=== PATIENT | female | born 1960 | race Caucasian/White ===

== ENCOUNTER 2016-04-28 05:31 | Inpatient (IN) | payer BC, SELFPAY ==
--- NOTE | ~2016-04-28 | CN ---
Consultation Report [facility] [address] [place]. [address] NAME: BRYAN WEBSTER : 64 STATUS : ADM IN [facility]#: [id number] AGE: 55 ADM/REG DATE : 04/28/16 MR#: [id number] REPORT SERV DATE: 05/02/16 DICTATED BY: JESS HEREDIA DATE: 05/02/16 REPORT STATUS : Draft TRANSCRIBED BY: MODL DATE: 05/02/16 CONSULT NOTE DATE OF CONSULTATION: 05/02/2016 REASON FOR CONSULTATION: Bilateral infiltrates and hypoxia. CHIEF COMPLAINT: None per the patient, the patient states she is doing fine. HISTORY OF PRESENT ILLNESS: Mrs. Webster is a 55-year-old female with a past medical history of hypertriglyceridemia, who has had uncontrolled triglycerides now for several months. According to the patient, who has a new diagnosis of diabetes and presented on the 04/28/2016 with intractable nausea and vomiting along with abdominal pain and was found to have pancreatitis. Due to the current treatment plan, the patient's pancreatitis has significantly improved, she has just mild tenderness upon abdominal palpation. However, according to the hospice, it has been noted that the patient has been having hypoxia now for several days. She has been on high flow oxygen on 10 L, this has now decreased to around 8 L. Upon speaking to the patient, the patient denies having any type of pneumonia symptoms even though the CT scan is consistent with an infiltrate, which is consistent with pneumonia. The patient states that her shortness of breath is not currently evident. Otherwise, the patient has no further complaints from a pulmonary standpoint. PAST MEDICAL HISTORY: Diabetes, hyper lipidemia, hypertriglyceridemia, renal insufficiency from , history of liver cysts, reflux, obesity. HOME MEDICATIONS: Medications reviewed. The patient is on Crestor, Glucophage, TriCor, and Cortef, among other things. ALLERGIES: NO KNOWN DRUG ALLERGIES. SOCIAL HISTORY: The patient is currently by herself, no alcohol or illicit drug use or tobacco use. FAMILY HISTORY: The patient states other family members with cancer, but nothing like this. REVIEW OF SYSTEMS: All pertinent review of systems reviewed and is otherwise negative. PHYSICAL EXAMINATION: VITAL SIGNS: Afebrile, heart rate around 100, respiratory rate around 14 to 16, oxygen saturation is round 92 to 94% on 8 L nasal cannula, blood pressure currently in the 110s to 120s systolic. GENERAL: The patient is alert and oriented x3, in no acute distress, no complaints. HEENT: No JVD. Consultation Report [address] [place]. [address] NAME: BRYAN WEBSTER : 64 STATUS : ADM IN [facility]#: [id number] AGE: 55 ADM/REG DATE : 04/28/16 MR#: [id number] REPORT SERV DATE: 05/02/16 DICTATED BY: JESS HEREDIA DATE: 05/02/16 REPORT STATUS : Draft TRANSCRIBED BY: MODLucia DATE: 05/02/16 NECK: Supple. PULMONARY: Crackles heard in the posterior lung engel and are somewhat distant, but no wheezing. CARDIAC: Possibly tachycardic, but no murmurs. ABDOMEN: Positive bowel sounds, yigc-ti-wgeekcob tenderness upon deep palpation in the epigastric area. EXTREMITIES: No lower extremity edema, peripheral pulses noted, extremity is warm to touch. LABORATORY EXAMINATION: No leukocytosis, moderate anemia, hypokalemia, good kidney function, hypophosphatemia. Triglycerides were 3971. LDL was not able to be calculated, cholesterol 357, and LDH is improving, lipase is improving. CT scan of the chest done on 05/01/2016, the patient has bilateral non-dependent dense infiltrates bilaterally, especially in the right upper lobe, no pulmonary emboli. ASSESSMENT AND PLAN: Mrs. Webster is a 55-year-old female with a past medical history noted above, who presents to the Pulmonary Clinic in acute hypoxic respiratory failure, acute respiratory distress syndrome, pulmonary edema. 1. Acute hypoxic respiratory failure. Most likely this is secondary to the patient's pancreatitis, likely the patient does not seem to have any sepsis syndrome. She is on antibiotics. We will check a procalcitonin, does not have any signs of pneumonia. Chest x-ray seemed pretty normal prior to the CT scan. As she has improvement in her hypoxia this moment in time, we will attempt diuresis. She does have electrolyte abnormalities for which the primary team aware up. We will continue to monitor and steroids will probably not helped with the patient at this moment in time, we are speaking about the glucocorticosteroid, not the Solu-Cortef that she had for her adrenal insufficiency. We will continue to follow closely and if this is secondary to the patient's pancreatitis, these shall improve. We will check her LDH and lipase in the morning. 2. Hypertriglyceridemia and hypocholesterolemia. Unclear whether this patient needs further therapy than just statin therapy, I wonder if she is a candidate of PASK9 inhibitors. This will need to be addressed in the outpatient setting. The patient does have an operator prefinish of note .. Thank you very much for this consultation and seeking our opinion, we will continue to follow closely with this very nice patient. FLORIQ/PAT Jess Heredia MD / [id number] Consultation Report [address] [place]. [address] NAME: BRYAN WEBSTER : 64 STATUS : ADM IN [facility]#: [id number] AGE: 55 ADM/REG DATE : 04/28/16 MR#: [id number] REPORT SERV DATE: 05/02/16 DICTATED BY: JESS HEREDIA DATE: 05/02/16 REPORT STATUS : Draft TRANSCRIBED BY: PAT DATE: 05/02/16 CC: Doug Lea N.P.
--- NOTE | ~2016-04-28 | CN ---
Consultation Report [facility] [address] [place]. [address] NAME: BRYAN SANCHEZ : 64 STATUS : ADM IN [facility]#: [id number] AGE: 55 ADM/REG DATE : 04/28/16 MR#: [id number] REPORT SERV DATE: 05/06/16 DICTATED BY: PATY CARLSON JR. DATE: 05/06/16 REPORT STATUS : Draft TRANSCRIBED BY: PAT DATE: 05/06/16 CONSULTATION DATE OF CONSULTATION: 05/06/2016 This is a consultation requested by Dr. Ryan for pancreatitis. HISTORY OF PRESENT ILLNESS: This is a 55-year-old female who has been hospitalized with acute pancreatitis. She was admitted on 04/28/2016 with complaints of intractable abdominal pain, nausea, and vomiting for one-day period of time. She has a history of diabetes and hyperlipidemia. She was admitted and thought to have acute pancreatitis with a CT scan which showed acute pancreatitis and elevated lipase. She was treated and actually has had some clinical improvement in her course; however, followup CT scans done yesterday demonstrated worsening of the pancreatitis with extensive peripancreatic edema, inflammation, and development of acute peripancreatic fluid collections concerning for incipient pseudocyst. She also has pulmonary changes which were somewhat concerning for ARDS, but this part has actually improved as well. She is tolerating minimal amounts of clear liquids. She does have some discomfort but it is improved. PAST MEDICAL HISTORY: Remarkable for history of diabetes, hyperlipidemia, hypertriglyceridemia, adrenal insufficiency, and actually has had adrenalectomy for the adrenal enlargement and is on adrenal hormone replacement therapy. SURGICAL HISTORY: Remarkable for she has had previous cholecystectomy, hysterectomy, C- section, and the surgeries above. SOCIAL HISTORY: No alcohol or tobacco. MEDICATIONS: Reviewed. FAMILY HISTORY: Noncontributory. REVIEW OF SYSTEMS: Otherwise noncontributory. PHYSICAL EXAMINATION: GENERAL: The exam shows an obese middle-aged female, who is in no acute distress, sitting quietly in a chair. HEENT: The head and neck exam shows the pupils equal and reactive. There are no icteric changes. Mucous membranes are not dry. There is some facial hair. LUNGS: Clear. CARDIOVASCULAR: Exam shows a normal S1 and S2 without murmur. ABDOMEN: The abdomen somewhat distended but soft. There is very mild tenderness. There is no peritonitis. There is no mass or thyromegaly. EXTREMITIES: Show no acute edema or cyanosis. Consultation Report [place] [id number] [place]. [address] NAME: BRYAN SANCHEZ : 64 STATUS : ADM IN PAT#: [id number] AGE: 55 ADM/REG DATE : 04/28/16 MR#: [id number] REPORT SERV DATE: 05/06/16 DICTATED BY: PATY CARLSON JR. DATE: 05/06/16 REPORT STATUS : Draft TRANSCRIBED BY: PAT DATE: 05/06/16 NEUROLOGIC: Exam shows that she is alert and oriented. She has no focal findings. DATA: CT images are reviewed in detail. IMPRESSION: Acute pancreatitis with complications of peripancreatic fluid collection, incipient pseudocyst. There is no evidence of any infection or necrosis currently. She has had complications of pulmonary ARDS, but these appear to be improving symptomatically. RECOMMENDATION: Would be for continued conservative treatment of pancreatitis with IV fluids and GI rest. We will check the level and we will need to monitor followup CT scans for the development of mature pseudocyst or any other complicating features. SHAINA/PAT Paty Carlson Jr., M.D. / [id number] CC: ERIC SANTANA
--- NOTE | ~2016-04-28 | IDS ---
Interim Discharge Summary [facility] [address] [place]. [address] NAME: BRYAN SANCHEZ : 64 STATUS : ADM IN [facility]#: [id number] AGE: 55 ADM/REG DATE : 04/28/16 MR#: [id number] REPORT SERV DATE: 05/05/16 DICTATED BY: NITHYA ESCALERA DATE: 05/05/16 REPORT STATUS : Draft TRANSCRIBED BY: MODL DATE: 05/05/16 ADMISSION DATE: 04/28/2016 DISCHARGE DATE: CONSULTING PHYSICIAN: Dr. Barriga for GI. INTERIM DIAGNOSES: 1. Acute pancreatitis with pseudocyst. 2. Hypertriglyceridemia. 3. Acute hypoxic respiratory failure. 4. Acute respiratory distress syndrome plus/minus bilateral pneumonia. 5. Uncontrolled diabetes. 6. Adrenal insufficiency. 7. Hyponatremia. 8. Hypothyroidism. 9. Obesity. 10.Gastroesophageal reflux disease. DIAGNOSTIC EXAMS: CAT scan of the abdomen and pelvis showing CT findings consistent with acute pancreatitis pattern, nonspecific hepatomegaly, and hepatic steatosis pattern, status post cholecystectomy, and hysterectomy. Chest x-ray, no acute process no prior exam. CTA of the chest; dense infiltrates and areas of consolidation within the lungs bilaterally, especially in the upper lobes, likely pneumonia. Small mediastinal and bilateral hilar lymph nodes, but no suspiciously enlarged lymph nodes are identified. No evidence of pulmonary emboli. No evidence of thoracic aortic dissection or aneurysm. Repeat CAT scan of the chest shows diffuse bilateral pulmonary infiltrates with areas of consolidation, diffuse ground-glass infiltrates. The apices remains to be more involved compared to previous study. There is increasing infiltrate involving the lower lobes, adenopathy of the mediastinum similar to previous exams. The nodes are not significantly enlarged. CT of the abdomen and pelvis showing inflammatory process within the abdomen, is extremely worse. Compared to 04/28/2016, there is increasing edema, enlarging the pancreas and increase in the edema around the pancreas that also extends into the adjustment issues and into the mesentery. There is now a fluid collection measuring approximately 12 x 5.9 cm along the greater curvature of the stomach that was not present on prior study, most likely representing pseudocyst. Hepatomegaly with diffuse fatty infiltration. HOSPITAL COURSE: Please refer to the H and P done by Dr. Valdes, dated on 04/28/2016. Briefly, this is a 55-year-old female who comes in with abdominal pain, nausea, and vomiting. 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 The patient presented to the hospital Interim Discharge Summary [place] [address] [place] [address] NAME: BRYAN SANCHEZ : 64 STATUS : ADM IN [facility]#: [id number] AGE: 55 ADM/REG DATE : 04/28/16 MR#: [id number] REPORT SERV DATE: 05/05/16 DICTATED BY: NITHYA ESCALERA. DATE: 05/05/16 REPORT STATUS : Draft TRANSCRIBED BY: MODLucia DATE: 05/05/16 with a one-day history of intractable nausea, vomiting, and abdominal pain. The patient was then admitted by Dr. Valdes with a diagnosis of pancreatitis. GI consultation with Dr. Barriga was obtained. The patient was treated conservatively, however, later on, she started having some increasing shortness of breath. She then had a CAT scan, which showed significant changes from the previous x-ray, and we are thinking that she has bilateral pneumonia. She came in with a procalcitonin of 0.99, but it went down to 0.67, and she was not having constant fever though she had an episode where it was elevated. The empiric antibiotic was continued with Levaquin and Flagyl, and we got a Pulmonary consult. The patient remains on high-flow oxygen and she said that she was feeling better, however, she does not seem to be improving much. We finally repeated a CAT scan of the chest and abdomen which shows the above findings. The patient will be monitored closely and continue with supportive measures with the consultants. Partner [facility] will be following up the patient starting Friday. SOULEYMANE/PAT Nithya Escalera M.D. / [id number] CC: Doug Lea N.P.
--- NOTE | ~2016-04-28 | DS ---
Discharge Summary [place] [id number] [place]. [address] NAME: BRYAN SANCHEZ : 64 STATUS : DIS IN PAT#: [id number] AGE: 55 ADM/REG DATE : 04/28/16 MR#: [id number] REPORT SERV DATE: 05/14/16 DICTATED BY: DATE: REPORT STATUS : Draft TRANSCRIBED BY: MODL DATE: 05/13/16 ADMISSION DATE: 04/28/2016 DISCHARGE DATE: 05/13/2016 [facility] including Dr. Salma Valdes and Dr. Jair Ryan. CONSULTANTS: Included Pulmonology - Ravin Chatman and also General surgery, Dr. Prieto and GI, Dr. Barriga. DISCHARGE DIAGNOSES: 1. Severe acute pancreatitis with pseudocyst formation. 2. ARDS due to acute pancreatitis. 3. Acute hypoxemic respiratory failure due to ARDS - resolved. 4. Anasarca due to hypoalbuminemia - improved during the admission. 5. Hypertriglyceridemia. 6. Ilc-fjaszgy-jrbbqpubh diabetes mellitus type 2 - hemoglobin A1c of 13.1. 7. History of adrenal insufficiency - history of a prior adrenalectomy. 8. Hypothyroidism. 9. Hyperlipidemia. 10.Situational anxiety. 11.Iatrogenic anemia due to multiple lab draws and prolonged hospitalization. IMAGING AND DIAGNOSTICS: Include multiple CTs of the abdomen and pelvis demonstrating severe acute pancreatitis, nonspecific hepatomegaly and hepatic steatosis. Status post cholecystectomy and hysterectomy. Subsequent CTs of the abdomen and pelvis demonstrated worsening inflammatory process with increasing peripancreatic edema extending into the mesentery, 12- x 6-cm fluid collection along the greater curvature of the stomach likely representing a pseudocyst, hepatomegaly with diffuse fatty infiltration. Subsequent imaging showed enlarging pseudocyst, but no pancreatic ischemia or necrosis. Subsequent CT showed stability of the pseudocyst. The patient also had multiple portable chest x-rays and a CTA of the chest demonstrating diffuse bilateral pulmonary edema. PERTINENT LABORATORIES: Blood Gas: A pH of 7.33, pCO2 of 33, PO2 of 61, and oxygen saturation 91% on 4 L nasal cannula. Procalcitonin values positive during the admission between 0.6 and 1.00. Creatinine values were normal. Total cholesterol 357, HDL 20, LDL could not be calculated due to high triglycerides ranging in value from 3971 to 735 during the admission. Liver enzymes were normal. Lipase ranged from 1916 to 397. TSH and free T4 were normal. Prealbumin 4.8. Hemoglobin A1c 13.1. BNP 190. Ammonia level 74. Lactic acid level negative. White blood cell count from 8.5 to 11.1. Hemoglobin from 9.6 to 11.4. Platelets between 305 and 778. Urinalysis was negative. Four sets of blood cultures were negative. BRIEF HISTORY: For full details, please see the previously dictated history of present Discharge Summary [address] [address] NAME: BRYAN SANCHEZ : 64 STATUS : DIS IN PAT#: [id number] AGE: 55 ADM/REG DATE : 04/28/16 MR#: [id number] REPORT SERV DATE: 05/14/16 DICTATED BY: DATE: REPORT STATUS : Draft TRANSCRIBED BY: MODL DATE: 05/13/[address] Salma Valdes. This is a 55-year-old white female with recently diagnosed diabetes, history of hyperlipidemia and hypertriglyceridemia, who presented to the emergency department with one-day history of intractable nausea, vomiting, epigastric abdominal pain, and dehydration. Her lipase was found to be elevated with CT scan showing acute pancreatitis, and the patient was admitted to the Hospitalist Service for further management. HOSPITAL COURSE: For full details, please also reference interim discharge summary by Dr. Jair Ryan on 05/05/2016. The patient initially was treated conservatively for acute pancreatitis, but during the week of 05/01/2016 was having increasing shortness of breath. She had a CT scan of the lungs showing progressive infiltrates and ARDS. Around that time, she also was doing worse from a GI perspective, with increasing abdominal pain. A repeat CT of the abdomen demonstrated progressive pancreatic inflammation with development of a large pseudocyst, expanding in size from prior imaging. General Surgery and GI were following the patient at that point and recommended total gut rest with TPN for severe protein-calorie malnutrition. This was initiated on 05/08/2016. The patient remained hospitalized with serial CT scans and labs until the CT scan showed improvement on the morning of 05/13/2016. At that point, she was felt appropriate for transition to an oral diet, which she tolerated, and she was requesting to be discharged home on the evening of 05/13/2016, even though in less than 12 hours had a lapse, and she was weaned off TPN and began eating. She was adamant that she would not remain in the hospital any further. Dr. Sue asked her to reconsider, and she refused. Thus, the patient is being discharged to home in the care of her , with explicit instructions to return to the emergency department if she develops any increase in abdominal pain, fever, nausea, vomiting, or other symptoms to suggest progression of known pancreatitis and pancreatic pseudocyst. Her ARDS resolved during the course of this week, and she was able to be weaned off oxygen entirely. She did have an episode of anasarca and severe peripheral edema which responded to albumin and Lasix. Her edema also improved as her nutritional status improved. Blood sugar control was an issue this admission, particularly when patient was on TPN, with blood sugars frequently around the 300 range. She required 50 units of Levemir twice a day as well as sliding scale regular insulin to control her blood sugars less than 200 during the admission. This was discussed with her sew out operator prior to discharge who recommended initiation of 10 units of Lantus subcu at bedtime, and stated that she will follow the patient closely within the next week. The patient was kept on her home medications for adrenal insufficiency, hypothyroidism, and hyperlipidemia. She was briefly treated with p.r.n. Ativan for situational anxiety but does not require this medication for discharge. DISCHARGE DISPOSITION: To home in the care of her with reservations from the medical staff as above. She should stick with a soft low-fat diabetic diet at discharge for the next several weeks. She needs to follow up with Dr. Mahmood of Endocrinology within a week and with Dr. Barriga in 1 month unless she develops abdominal pain; at which point, she Discharge Summary [place] [address] [place]. [address] NAME: BRYAN SANCHEZ : 64 STATUS : DIS IN PAT#: [id number] AGE: 55 ADM/REG DATE : 04/28/16 MR#: [id number] REPORT SERV DATE: 05/14/16 DICTATED BY: DATE: REPORT STATUS : Draft TRANSCRIBED BY: MODL DATE: 05/13/16 needs to return to the emergency department or contact Dr. Barriga's office immediately. DISCHARGE MEDICATIONS: Include 1. Tricor 145 mg p.o. every day at bedtime. 2. Florinef 0.1 mg p.o. q.a.m. 3. Hydrocortisone 10 mg p.o. q.a.m. 4. Hydrocortisone 5 mg p.o. at bedtime. 5. Glucophage 500 mg p.o. twice a day. 6. Levothyroxine 100 mcg p.o. q.a.m. 7. Nexium 20 mg p.o. daily. 8. Crestor 40 mg p.o. at bedtime. 9. Zyrtec 10 mg p.o. daily. 10.Percocet 5/325 mg p.o. q.6 hours p.r.n. pain - 20 tablets dispensed with no refills. 11.Lantus 10 units subcu at bedtime. 12.[place] and syringes for daily insulin injection. Forty minutes was spent in completion of the discharge. JARRETT/PAT Tez Pandya M.D. / [id number] CC: Doug Blanc N.P. Richard Sadowitz, M.D. Jasmine Carson, N.P. Sheela Lohiya, MD
--- NOTE | ~2016-04-28 | HP ---
History And Physical [facility] [address] [place]. [address] NAME: BRYAN SANCHEZ : 64 STATUS : ADM IN [facility]#: [id number] AGE: 55 ADM/REG DATE : 04/28/16 MR#: [id number] REPORT SERV DATE: 04/28/16 DICTATED BY: SALMA VALDES DATE: 04/28/16 REPORT STATUS : Draft TRANSCRIBED BY: MODL DATE: 04/28/16 DATE OF ADMISSION: 04/28/2016 CHIEF COMPLAINT: Intractable abdominal pain, nausea, and vomiting for one day. HISTORY OF PRESENT ILLNESS: This is a very pleasant 55-year-old female. She has a history of diabetes type 2, newly diagnosed; history of hyperlipidemia; history of adrenal insufficiency secondary to adrenal hyperplasia. She has had adrenalectomy performed in the past according to the family. She is on replacement treatment with Florinef and hydrocortisone. She also has a history of hypothyroidism, GERD, obesity; presenting today to [facility] with one-day history of intractable nausea, vomiting, epigastric abdominal pain, significant dehydration, and inability to keep anything down. There was no chest pain or shortness of breath. No PND. No orthopnea. There was no headache. There was no cough or sputum production. No increased urinary frequency or urgency. No diarrhea or constipation. No other complaints. The patient has been evaluated in the emergency room, and the Hospitalist Service has been asked for admission, further evaluation, and treatment. PAST MEDICAL HISTORY: Significant for diabetes type 2; history of hyperlipidemia; adrenal insufficiency, on replacement treatment; history of liver cyst; and GERD. PAST SURGICAL HISTORY: Includes cholecystectomy, hysterectomy, , and adrenalectomy. SOCIAL HISTORY: Denies tobacco, alcohol, or IV drugs. ALLERGIES: THE PATIENT DOES NOT HAVE ANY DRUG ALLERGIES. FAMILY HISTORY: Significant for cancer. MEDICATIONS AT HOME: Include Zyrtec, Nexium, TriCor, Florinef, Cortef, levothyroxine, Glucophage, and Crestor. REVIEW OF SYSTEMS: A 14-point review of systems has been obtained and pertinent positive has been listed into the history of present illness. Otherwise, negative except those underlying above. PHYSICAL EXAMINATION: VITAL SIGNS: Currently, the patient is afebrile. Blood pressure 132/60, heart rate 99, respiratory rate 20, saturating 94% on room air. GENERAL: She is a very pleasant, ill-appearing female, in no acute distress. She is alert and oriented x3. She is nonfocal. She follows all her commands appropriately. HEENT: Shows pupils equal, round, and reactive to light. Extraocular movements intact. No JVD. No lymphadenopathy. No thyromegaly appreciated. CHEST: Evaluation shows bilateral air entry. Clear anteroposterior. Decreased breath sounds bibasilarly. No wheezes, crackles, or rhonchi appreciated. CARDIOVASCULAR: She has regular rate and rhythm. S1 and S2 positive. No S3, no S4. No History And Physical [address] [address] NAME: BRYAN SANCHEZ : [birth year] STATUS : ADM IN [facility]#: [id number] AGE: 55 ADM/REG DATE : 04/28/16 MR#: [id number] REPORT SERV DATE: 04/28/16 DICTATED BY: SALMA VALDES DATE: 04/28/16 REPORT STATUS : Draft TRANSCRIBED BY: PAT DATE: 04/28/16 murmurs, rubs, or gallops appreciated. ABDOMEN: Soft, slightly distended but tender in the epigastric area. No guarding. No rebound. EXTREMITIES: No clubbing, cyanosis, or edema. NEUROLOGIC: She is alert and oriented x3. She is nonfocal. She follows all her commands appropriately. LABORATORY DATA: Labs from today include sodium 138, potassium 3.6, chloride is 102, CO2 of 21, BUN 6, creatinine 0.50, glucose is 269. Her total protein 6.7, albumin 3.3, globulin 3.4, total bilirubin 0.4, alkaline phosphatase 103, ALT 39, AST 45. Lipase 1916. Her white count is 11.1, hemoglobin 11.4, hematocrit 35.5, and platelets are 340. UA currently is pending. CT of the abdomen and pelvis without contrast performed in the emergency room shows an acute pancreatitis, nonspecific hepatomegaly and hepatic steatosis, status post cholecystectomy and hysterectomy. ASSESSMENT AND PLAN: This is a very pleasant 55-year-old female with intractable nausea, vomiting, and abdominal pain with: 1. Acute pancreatitis, questionable etiology, possibly related to hyperlipidemia. Rule out other causes. 2. History of adrenal insufficiency, on replacement treatment. 3. Diabetes type 2, noninsulin-dependent, recently diagnosed. 4. Fatty liver. 5. Hypothyroidism. 6. History of gastroesophageal reflux disease. PLAN: 1. The patient is going to be admitted to Hospitalist Service. We are going to keep her n.p.o. Provide her vigorous IV hydration. We are going to place her on Protonix IV b.i.d. Panculture, supportive care. We are going to order an MRI of the abdomen, GI evaluation. Check a fasting lipid profile as well. Provide supportive care, nausea and pain control. 2. History of adrenal insufficiency. While the patient is n.p.o., we are going to provide IV Solu-Cortef as needed. 3. Hyperlipidemia history. We are going to check a fasting lipid profile. 4. Diabetes type 2, recently diagnosed. While the patient is n.p.o., Accu-Cheks q.6 hours and sliding scale insulin subcutaneously, level 2. 5. Hypothyroidism. We are going to provide Synthroid and check a TSH and a free T4. 6. We are going to provide reasonable pain and nausea control as well as GI and DVT prophylaxis. This has been discussed extensively with the patient and the family. All the questions have been answered in full. Further workup and recommendation pending above. CF/MODL Salma History And Physical [address] [address] NAME: BRYAN SANCHEZ : [birth year] STATUS : ADM IN [facility]#: [id number] AGE: 55 ADM/REG DATE : 04/28/16 MR#: [id number] REPORT SERV DATE: 04/28/16 DICTATED BY: SALMA VALDES DATE: 04/28/16 REPORT STATUS : Draft TRANSCRIBED BY: MODL DATE: 04/28/16 Doug Valdes / [id number] CC: Salma Valdes M.D.
[2016-04-28 06:07] LABS: CO2 (CARBON DIOXIDE) 21 MMOL/L (24-34)
[2016-04-28 06:11] LABS: BASOPHILS 0.2 %; BASOPHILS ABSOLUTE 0.02 10/3/uL (0.0-0.16); EOSINOPHILS 2.4 %; EOSINOPHILS ABSOLUTE 0.27 10/3/uL (0.0-0.53); HEMATOCRIT 35.5 % (36.0-48.0); IMMATURE GRANULOCYTES 0.2 %; IMMATURE GRANULOCYTES ABSOLUTE 0.02 10/3/uL (0.0-0.11); LYMPHOCYTES 8.5 %; LYMPHOCYTES ABSOLUTE 0.94 10/3/uL (0.67-4.30); MEAN CORPUSCULAR VOLUME 86.8 fL (80-100); MEAN PLATELET VOLUME 11.6 fL (9.2-13.0); MONOCYTES 10.2 %; MONOCYTES ABSOLUTE 1.13 10/3/uL (0.21-1.20); NEUTROPHILS 78.5 %; NEUTROPHILS ABSOLUTE 8.68 10/3/uL (2.02-8.40); PLATELET COUNT 340 10/3/uL (150-400); RBC DISTRIBUTION WIDTH 15.1 % (12.0-16.0); RED CELL COUNT 4.09 10/6/uL (4.0-5.6); WHITE BLOOD CELLS 11.1 10/3/uL (4.5-10.5)
[2016-04-28 06:13] LABS: ER CBC TAT 0 Hrs 37 Mins; HEMOGLOBIN 11.4 g/dL (12.0-16.0); MEAN CORPUSCULAR HEMOGLOB 27.8 pg (26.0-34.0)
[2016-04-28 06:14] LABS: MANUAL DIFF NO %
[2016-04-28] MEDS ORDERED: LEVOTHYROXIN100 MCG PO (06:29)
[2016-04-28] MEDS ORDERED: TRICOR145 PO (06:29)
[2016-04-28] MEDS ORDERED: FLORINEF0.1 MG PO (06:29)
[2016-04-28] MEDS ORDERED: ZYRTEC ALLGY10 MG PO (06:30)
[2016-04-28] MEDS ORDERED: NEXIUM20 M1 PO (06:30)
[2016-04-28] MEDS ORDERED: CRESTOR40 MG PO (06:30)
[2016-04-28] MEDS ORDERED: CORTEF5 PO (06:31)
[2016-04-28] MEDS ORDERED: CORTEF20 MG PO (06:31)
[2016-04-28] MEDS ORDERED: GLUCPH PO (06:32)
[2016-04-28 06:38] LABS: PLATELET ESTIMATE ADQ (ADEQUATE); RBC MORPHOLOGY NORM (NORMAL)
[2016-04-28 08:11] LABS: ALKALINE PHOSPHATASE 101 U/L (45-117); BUN (BLOOD UREA NITROGEN) 6 MG/DL (6-23); CALCIUM, SERUM 8.4 MG/DL (8.5-10.4); SGOT(AST) 45 U/L (5-40); SGPT(ALT) 39 U/L (5-65); TOTAL BILIRUBIN 0.4 MG/DL (0-1.2); TOTAL PROTEIN 6.7 G/DL (6.0-8.5)
[2016-04-28 08:13] LABS: ALBUMIN 3.3 G/DL (3.5-5.0); CHLORIDE, SERUM 102 MMOL/L (96-112); GFR AFRICAN AMERICAN 128 ML/MIN (>=60); GFR NON AFRICAN AMERICAN 111 ML/MIN (>=60); GLOBULIN 3.4 G/DL (2.5-4.1); GLUCOSE, SERUM 269 MG/DL (60-99); POTASSIUM, SERUM 3.6 MMOL/L (3.5-5.3)
[2016-04-28 08:15] LABS: SODIUM, SERUM 138 MMOL/L (135-148)
[2016-04-28 08:42] LABS: ASCORBIC ACID (UR NOT ORDER) NEG (NEG); BILIRUBIN, URINE NEGATIVE (NEG); ER URINALYSIS TAT 0 Hrs 15 Mins; KETONE, URINE 20 MG/DL (NEG); LEUKOCYTE ESTERASE(NOT OR NEG (NEG); NITRITE (URINE) NEG (NEG); WBC (NOT ORDERED) (RFLEX) 2 (0-5)
[2016-04-28 13:12] LABS: INTERNATIONAL NORMAL RATI 1.1 UNITS (-); PARTIAL THROMBO TIME 32.3 SEC (22.5-37.2); PROTIME (NOT ORD) 13.6 SEC (12.0-14.5)
[2016-04-28 13:44] LABS: ALBUMIN 2.9 G/DL (3.5-5.0); ALCOHOL < 10 MG/DL (0); ALKALINE PHOSPHATASE 114 U/L (45-117); DIRECT BILIRUBIN 0.2 MG/DL (0.0-0.4); FREE T4 1.38 NG/DL (0.76-1.46); INDIRECT BILIRUBIN(NOT ORDER) 0.6 MG/DL (0.1-0.9); PHOSPHORUS, SERUM 1.9 MG/DL (2.5-4.5); SALICYLATE < 1.7 MG/DL (-); SGPT(ALT) 38 U/L (5-65); TOTAL BILIRUBIN 0.8 MG/DL (0-1.2); TOTAL PROTEIN 6.6 G/DL (6.0-8.5)
[2016-04-28 13:45] LABS: ACETAMINOPHEN LEVEL (TYLENOL) < 2.0 MCG/ML (10.0-20.0); SGOT(AST) 44 U/L (5-40)
[2016-04-28 14:12] LABS: PROCALCITONIN 0.99 ng/mL (<0.5)
[2016-04-28 14:23] LABS: B NATRIURETIC PEPTIDE (BNP) 3.3 PG/ML (< 100.0)
[2016-04-29 05:47] LABS: BASOPHILS 0.1 %; BASOPHILS ABSOLUTE 0.01 10/3/uL (0.0-0.16); EOSINOPHILS 0.4 %; EOSINOPHILS ABSOLUTE 0.03 10/3/uL (0.0-0.53); IMMATURE GRANULOCYTES 0.1 %; IMMATURE GRANULOCYTES ABSOLUTE 0.01 10/3/uL (0.0-0.11); LYMPHOCYTES 13.9 %; MEAN CORPUSCULAR VOLUME 87.5 fL (80-100); MEAN PLATELET VOLUME 11.6 fL (9.2-13.0); MONOCYTES 10.2 %; MONOCYTES ABSOLUTE 0.74 10/3/uL (0.21-1.20); NEUTROPHILS 75.3 %; NEUTROPHILS ABSOLUTE 5.43 10/3/uL (2.02-8.40); PLATELET COUNT 305 10/3/uL (150-400); RBC DISTRIBUTION WIDTH 15.8 % (12.0-16.0); RED CELL COUNT 3.76 10/6/uL (4.0-5.6); WHITE BLOOD CELLS 7.2 10/3/uL (4.5-10.5)
[2016-04-29 06:04] LABS: CHOL/HDL RATIO(NOT ORDER) 17.9 (0-5); CHOLESTEROL 357 MG/DL (< 200); HDL CHOLESTEROL 20 MG/DL (> 49); NON-HDL CHOLESTEROL 337 MG/DL (< 160)
[2016-04-29 06:05] LABS: TRIGLYCERIDE 3971 MG/DL (< 150)
[2016-04-29 06:38] LABS: HEMATOCRIT 32.9 % (36.0-48.0); MEAN CORPUS HGB CONC 31.4 g/dL (32.0-36.0)
[2016-04-29 06:39] LABS: MEAN CORPUSCULAR HEMOGLOB 27.5 pg (26.0-34.0)
[2016-04-29 06:42] LABS: HEMOGLOBIN 10.4 g/dL (12.0-16.0); MANUAL DIFF NO %
[2016-04-29 06:44] LABS: POIKILOCYTOSIS 1+ (5-10/OIF) (0-5/OIF); RBC MORPHOLOGY ABN (NORMAL); STOMATOCYTES 1+ (3-10/OIF) (0-2/OIF)
[2016-04-29 07:29] LABS: ALBUMIN 2.5 G/DL (3.5-5.0); BUN (BLOOD UREA NITROGEN) 8 MG/DL (6-23); CHLORIDE, SERUM 106 MMOL/L (96-112); CO2 (CARBON DIOXIDE) 19 MMOL/L (24-34); CREATININE 0.56 MG/DL (0.55-1.02); DIRECT BILIRUBIN 0.2 MG/DL (0.0-0.4); GFR AFRICAN AMERICAN 123 ML/MIN (>=60); GFR NON AFRICAN AMERICAN 106 ML/MIN (>=60); GLUCOSE, SERUM 251 MG/DL (60-99); INDIRECT BILIRUBIN(NOT ORDER) 0.3 MG/DL (0.1-0.9); SGPT(ALT) 40 U/L (5-65); SODIUM, SERUM 139 MMOL/L (135-148); TOTAL BILIRUBIN 0.5 MG/DL (0-1.2); TOTAL PROTEIN 6.6 G/DL (6.0-8.5)
[2016-04-29 07:30] LABS: A/G RATIO 0.6 (0.7-1.9); ALKALINE PHOSPHATASE 97 U/L (45-117); GLOBULIN 4.1 G/DL (2.5-4.1); POTASSIUM, SERUM 4.2 MMOL/L (3.5-5.3)
[2016-04-29 07:31] LABS: SGOT(AST) 48 U/L (5-40)
[2016-04-29 10:50] LABS: GLYCOHEMOGLOBIN (HbA1c) 13.1 % (4.7-6.1)
[2016-04-30 06:17] LABS: BASOPHILS 0.1 %; BASOPHILS ABSOLUTE 0.01 10/3/uL (0.0-0.16); EOSINOPHILS 0.1 %; EOSINOPHILS ABSOLUTE 0.01 10/3/uL (0.0-0.53); HEMATOCRIT 30.6 % (36.0-48.0); HEMOGLOBIN 10.8 g/dL (12.0-16.0); IMMATURE GRANULOCYTES 0.4 %; IMMATURE GRANULOCYTES ABSOLUTE 0.03 10/3/uL (0.0-0.11); LYMPHOCYTES 9.3 %; LYMPHOCYTES ABSOLUTE 0.79 10/3/uL (0.67-4.30); MEAN CORPUSCULAR VOLUME 88.7 fL (80-100); MEAN PLATELET VOLUME 11.4 fL (9.2-13.0); MONOCYTES ABSOLUTE 0.76 10/3/uL (0.21-1.20); NEUTROPHILS 81.1 %; NEUTROPHILS ABSOLUTE 6.89 10/3/uL (2.02-8.40); PLATELET COUNT 276 10/3/uL (150-400); RBC DISTRIBUTION WIDTH 16.5 % (12.0-16.0); RED CELL COUNT 3.45 10/6/uL (4.0-5.6); WHITE BLOOD CELLS 8.5 10/3/uL (4.5-10.5)
[2016-04-30 06:18] LABS: MANUAL DIFF NO %; MEAN CORPUS HGB CONC 35.3 g/dL (32.0-36.0); MEAN CORPUSCULAR HEMOGLOB 31.3 pg (26.0-34.0)
[2016-04-30 06:43] LABS: ALKALINE PHOSPHATASE 103 U/L (45-117); CHLORIDE, SERUM 100 MMOL/L (96-112); CREATININE 0.36 MG/DL (0.55-1.02); GFR AFRICAN AMERICAN 143 ML/MIN (>=60); GFR NON AFRICAN AMERICAN 123 ML/MIN (>=60); SODIUM, SERUM 133 MMOL/L (135-148)
[2016-04-30 06:53] LABS: BUN (BLOOD UREA NITROGEN) 9 MG/DL (6-23); CO2 (CARBON DIOXIDE) 23 MMOL/L (24-34); POTASSIUM, SERUM 5.5 MMOL/L (3.5-5.3)
[2016-04-30 06:54] LABS: A/G RATIO 0.3 (0.7-1.9); ALBUMIN 1.6 G/DL (3.5-5.0); CALCIUM, SERUM 6.3 MG/DL (8.5-10.4); GLUCOSE, SERUM 262 MG/DL (60-99); TOTAL BILIRUBIN 1.3 MG/DL (0-1.2); TOTAL PROTEIN 6.6 G/DL (6.0-8.5)
[2016-04-30 07:47] LABS: SGOT(AST) 121 U/L (5-40)
[2016-04-30 07:59] LABS: SGPT(ALT) 77 U/L (5-65)
[2016-04-30 09:37] LABS: BE (BASE EXCESS) -7.9 MEQ/L (0 +/- 2.5); HEMOBLOGIN CONTENT 11.3 G/DL (12-16); INSTRUMENT SERIAL # 8083; METHEMOGLOBIN 0.1 % (0-3); O2 CONTENT 14.5 VOL% (18-24); PCO2 (CO2 TENSION) 33 MMHG (35-45); PO2 (O2 TENSION) 61 MMHG (79-93); pH 7.33 (7.37-7.43)
[2016-04-30 09:38] LABS: ALLENS TEST Pos; SAMPLE Arterial
[2016-04-30 11:30] LABS: PHOSPHORUS, SERUM 1.9 MG/DL (2.5-4.5)
[2016-05-01 07:38] LABS: ALBUMIN 1.9 G/DL (3.5-5.0); BUN (BLOOD UREA NITROGEN) 9 MG/DL (6-23); CHLORIDE, SERUM 94 MMOL/L (96-112); CO2 (CARBON DIOXIDE) 24 MMOL/L (24-34); CREATININE 0.45 MG/DL (0.55-1.02); GFR AFRICAN AMERICAN 133 ML/MIN (>=60); GFR NON AFRICAN AMERICAN 114 ML/MIN (>=60); GLUCOSE, SERUM 219 MG/DL (60-99); PHOSPHORUS, SERUM 1.8 MG/DL (2.5-4.5); SODIUM, SERUM 135 MMOL/L (135-148); TOTAL BILIRUBIN 1.2 MG/DL (0-1.2); TOTAL PROTEIN 7.5 G/DL (6.0-8.5)
[2016-05-01 07:39] LABS: CALCIUM, SERUM 8.6 MG/DL (8.5-10.4)
[2016-05-01 07:40] LABS: ALKALINE PHOSPHATASE 115 U/L (45-117); DIRECT BILIRUBIN < 0.1 MG/DL (0.0-0.4); INDIRECT BILIRUBIN(NOT ORDER) 1.1 MG/DL (0.1-0.9); POTASSIUM, SERUM 4.3 MMOL/L (3.5-5.3); SGOT(AST) 73 U/L (5-40)
[2016-05-01 07:49] LABS: SGPT(ALT) 23 U/L (5-65)
[2016-05-02 06:28] LABS: BASOPHILS 0.1 %; BASOPHILS ABSOLUTE 0.01 10/3/uL (0.0-0.16); EOSINOPHILS 0.6 %; EOSINOPHILS ABSOLUTE 0.06 10/3/uL (0.0-0.53); HEMATOCRIT 28.5 % (36.0-48.0); HEMOGLOBIN 9.8 g/dL (12.0-16.0); IMMATURE GRANULOCYTES 0.5 %; IMMATURE GRANULOCYTES ABSOLUTE 0.05 10/3/uL (0.0-0.11); LYMPHOCYTES ABSOLUTE 0.84 10/3/uL (0.67-4.30); MEAN CORPUS HGB CONC 34.4 g/dL (32.0-36.0); MEAN CORPUSCULAR HEMOGLOB 28.9 pg (26.0-34.0); MEAN PLATELET VOLUME 10.7 fL (9.2-13.0); MONOCYTES 5.7 %; NEUTROPHILS 85.1 %; NEUTROPHILS ABSOLUTE 8.88 10/3/uL (2.02-8.40); RBC DISTRIBUTION WIDTH 16.1 % (12.0-16.0); RED CELL COUNT 3.39 10/6/uL (4.0-5.6); WHITE BLOOD CELLS 10.4 10/3/uL (4.5-10.5)
[2016-05-02 06:40] LABS: MANUAL DIFF NO %; MEAN CORPUSCULAR VOLUME 84.1 fL (80-100); PLATELET COUNT 385 10/3/uL (150-400)
[2016-05-02 07:56] LABS: ALBUMIN 1.8 G/DL (3.5-5.0); BUN (BLOOD UREA NITROGEN) 8 MG/DL (6-23); CALCIUM, SERUM 8.4 MG/DL (8.5-10.4); CHLORIDE, SERUM 90 MMOL/L (96-112); CO2 (CARBON DIOXIDE) 22 MMOL/L (24-34); CREATININE 0.39 MG/DL (0.55-1.02); GFR AFRICAN AMERICAN 139 ML/MIN (>=60); GFR NON AFRICAN AMERICAN 120 ML/MIN (>=60); GLUCOSE, SERUM 207 MG/DL (60-99); SGPT(ALT) 20 U/L (5-65); SODIUM, SERUM 133 MMOL/L (135-148); TOTAL PROTEIN 7.2 G/DL (6.0-8.5)
[2016-05-02 07:58] LABS: ALKALINE PHOSPHATASE 127 U/L (45-117); DIRECT BILIRUBIN 0.1 MG/DL (0.0-0.4); INDIRECT BILIRUBIN(NOT ORDER) 0.4 MG/DL (0.1-0.9); POTASSIUM, SERUM 2.7 MMOL/L (3.5-5.3); TOTAL BILIRUBIN 0.5 MG/DL (0-1.2)
[2016-05-02 07:59] LABS: SGOT(AST) 32 U/L (5-40)
[2016-05-02 22:01] LABS: GLUCOSE, SERUM 176 MG/DL (60-99); SODIUM, SERUM 134 MMOL/L (135-148)
[2016-05-02 22:02] LABS: POTASSIUM, SERUM 2.6 MMOL/L (3.5-5.3)
[2016-05-02 22:04] LABS: CHLORIDE, SERUM 90 MMOL/L (96-112); CO2 (CARBON DIOXIDE) 32 MMOL/L (24-34)
[2016-05-02 22:05] LABS: BUN (BLOOD UREA NITROGEN) 7 MG/DL (6-23); CALCIUM, SERUM 7.8 MG/DL (8.5-10.4); CREATININE 0.45 MG/DL (0.55-1.02); GFR AFRICAN AMERICAN 133 ML/MIN (>=60); GFR NON AFRICAN AMERICAN 114 ML/MIN (>=60)
[2016-05-03 06:24] LABS: BUN (BLOOD UREA NITROGEN) 6 MG/DL (6-23); CALCIUM, SERUM 7.7 MG/DL (8.5-10.4); CHLORIDE, SERUM 87 MMOL/L (96-112); CO2 (CARBON DIOXIDE) 30 MMOL/L (24-34); CREATININE 0.47 MG/DL (0.55-1.02); GFR AFRICAN AMERICAN 131 ML/MIN (>=60); GFR NON AFRICAN AMERICAN 113 ML/MIN (>=60); PHOSPHORUS, SERUM 1.4 MG/DL (2.5-4.5); SODIUM, SERUM 132 MMOL/L (135-148)
[2016-05-03 06:26] LABS: GLUCOSE, SERUM 286 MG/DL (60-99); POTASSIUM, SERUM 2.5 MMOL/L (3.5-5.3); TRIGLYCERIDE 1824 MG/DL (< 150)
[2016-05-03 06:28] LABS: BASOPHILS 0.3 %; BASOPHILS ABSOLUTE 0.03 10/3/uL (0.0-0.16); EOSINOPHILS 1.7 %; EOSINOPHILS ABSOLUTE 0.19 10/3/uL (0.0-0.53); HEMATOCRIT 30.8 % (36.0-48.0); HEMOGLOBIN 10.3 g/dL (12.0-16.0); IMMATURE GRANULOCYTES 4.3 %; IMMATURE GRANULOCYTES ABSOLUTE 0.47 10/3/uL (0.0-0.11); LYMPHOCYTES ABSOLUTE 1.09 10/3/uL (0.67-4.30); MEAN CORPUS HGB CONC 33.4 g/dL (32.0-36.0); MEAN CORPUSCULAR HEMOGLOB 28.8 pg (26.0-34.0); MEAN PLATELET VOLUME 10.9 fL (9.2-13.0); MONOCYTES 6.6 %; MONOCYTES ABSOLUTE 0.72 10/3/uL (0.21-1.20); NEUTROPHILS 77.1 %; NEUTROPHILS ABSOLUTE 8.39 10/3/uL (2.02-8.40); PLATELET COUNT 446 10/3/uL (150-400); RBC DISTRIBUTION WIDTH 15.9 % (12.0-16.0); RED CELL COUNT 3.58 10/6/uL (4.0-5.6); WHITE BLOOD CELLS 10.9 10/3/uL (4.5-10.5)
[2016-05-03 06:32] LABS: MANUAL DIFF NO %
[2016-05-03 06:42] LABS: PROCALCITONIN 0.62 ng/mL (<0.5)
[2016-05-03 19:58] LABS: POTASSIUM, SERUM 2.4 MMOL/L (3.5-5.3)
[2016-05-03 20:00] LABS: PHOSPHORUS, SERUM 2.5 MG/DL (2.5-4.5)
[2016-05-04 06:09] LABS: HEMATOCRIT 30.3 % (36.0-48.0); HEMOGLOBIN 10.1 g/dL (12.0-16.0); MEAN CORPUS HGB CONC 33.3 g/dL (32.0-36.0); MEAN CORPUSCULAR HEMOGLOB 28.5 pg (26.0-34.0); MEAN CORPUSCULAR VOLUME 85.6 fL (80-100); NUCLEATED RED BLOOD CELLS 0.8 /100WBC (0-0); PLATELET COUNT 454 10/3/uL (150-400); RBC DISTRIBUTION WIDTH 15.6 % (12.0-16.0); RED CELL COUNT 3.54 10/6/uL (4.0-5.6); WHITE BLOOD CELLS 12.4 10/3/uL (4.5-10.5)
[2016-05-04 06:12] LABS: MANUAL DIFF YES %
[2016-05-04 06:25] LABS: ALBUMIN 1.5 G/DL (3.5-5.0); BUN (BLOOD UREA NITROGEN) 4 MG/DL (6-23); CALCIUM, SERUM 7.5 MG/DL (8.5-10.4); CHLORIDE, SERUM 87 MMOL/L (96-112); CO2 (CARBON DIOXIDE) 29 MMOL/L (24-34); CREATININE 0.52 MG/DL (0.55-1.02); GFR AFRICAN AMERICAN 126 ML/MIN (>=60); GFR NON AFRICAN AMERICAN 109 ML/MIN (>=60); SODIUM, SERUM 129 MMOL/L (135-148); TOTAL BILIRUBIN 0.8 MG/DL (0-1.2); TOTAL PROTEIN 6.2 G/DL (6.0-8.5)
[2016-05-04 06:27] LABS: ALKALINE PHOSPHATASE 204 U/L (45-117); DIRECT BILIRUBIN 0.3 MG/DL (0.0-0.4); GLUCOSE, SERUM 218 MG/DL (60-99); INDIRECT BILIRUBIN(NOT ORDER) 0.5 MG/DL (0.1-0.9); POTASSIUM, SERUM 2.4 MMOL/L (3.5-5.3)
[2016-05-04 06:28] LABS: SGOT(AST) 68 U/L (5-40); SGPT(ALT) 27 U/L (5-65)
[2016-05-04 06:43] LABS: BAND NEUTROPHILS 15 %; EOSINOPHILS 2 %; EOSINOPHILS ABSOLUTE (CALC) 0.25 10/3/uL (0.0-0.53); LYMPHOCYTES 14 %; LYMPHOCYTES ABSOLUTE (CALC) 1.74 10/3/uL (0.67-4.30); MONOCYTES 10 %; MONOCYTES ABSOLUTE (CALC) 1.24 10/3/uL (0.21-1.20); NEUTROPHILS ABSOLUTE (CALC) 9.18 10/3/uL (2.02-8.40); PLATELET ESTIMATE SLT INC (ADEQUATE); SEGMENTED NEUTROPHIL (0) 59 %; TOTAL NUCLEATED CELLS 100
[2016-05-04 06:53] LABS: POLYCHROMASIA 1+ (2-5/OIF) (0-1/OIF); TARGET CELLS FEW (3-10/OIF) (0-1/OIF)
[2016-05-04 06:54] LABS: GIANT PLATELET FEW; TEARDROP SHAPED RBCS FEW (3-10/OIF)
[2016-05-05 05:41] LABS: HEMATOCRIT 28.8 % (36.0-48.0); HEMOGLOBIN 9.5 g/dL (12.0-16.0); MEAN CORPUSCULAR HEMOGLOB 28.4 pg (26.0-34.0); MEAN CORPUSCULAR VOLUME 86.2 fL (80-100); MEAN PLATELET VOLUME 10.5 fL (9.2-13.0); NUCLEATED RED BLOOD CELLS 0.3 /100WBC (0-0); PLATELET COUNT 443 10/3/uL (150-400); RED CELL COUNT 3.34 10/6/uL (4.0-5.6); WHITE BLOOD CELLS 12.3 10/3/uL (4.5-10.5)
[2016-05-05 05:42] LABS: MANUAL DIFF YES %
[2016-05-05 05:55] LABS: BUN (BLOOD UREA NITROGEN) 3 MG/DL (6-23); CHLORIDE, SERUM 91 MMOL/L (96-112); CO2 (CARBON DIOXIDE) 29 MMOL/L (24-34); CREATININE 0.46 MG/DL (0.55-1.02); GFR AFRICAN AMERICAN 132 ML/MIN (>=60); GFR NON AFRICAN AMERICAN 114 ML/MIN (>=60); SODIUM, SERUM 133 MMOL/L (135-148)
[2016-05-05 05:57] LABS: GLUCOSE, SERUM 162 MG/DL (60-99); PHOSPHORUS, SERUM 1.4 MG/DL (2.5-4.5); POTASSIUM, SERUM 2.6 MMOL/L (3.5-5.3)
[2016-05-05 06:29] LABS: BAND NEUTROPHILS 14 %; BASOPHILS 1 %; BASOPHILS ABSOLUTE (CALC) 0.12 10/3/uL (0.0-0.16); LYMPHOCYTES 8 %; LYMPHOCYTES ABSOLUTE (CALC) 0.98 10/3/uL (0.67-4.30); MONOCYTES 6 %; MONOCYTES ABSOLUTE (CALC) 0.74 10/3/uL (0.21-1.20); NEUTROPHILS ABSOLUTE (CALC) 10.46 10/3/uL (2.02-8.40); PLATELET ESTIMATE SLT INC (ADEQUATE); SEGMENTED NEUTROPHIL (0) 71 %; TOTAL NUCLEATED CELLS 100; TOXIC GRANULATION SLT
[2016-05-05 06:31] LABS: POLYCHROMASIA 1+ (2-5/OIF) (0-1/OIF); TEARDROP SHAPED RBCS FEW (3-10/OIF)
[2016-05-06 06:54] LABS: HEMATOCRIT 26.7 % (36.0-48.0); HEMOGLOBIN 8.8 g/dL (12.0-16.0); MEAN CORPUSCULAR HEMOGLOB 28.5 pg (26.0-34.0); MEAN CORPUSCULAR VOLUME 86.4 fL (80-100); MEAN PLATELET VOLUME 10.6 fL (9.2-13.0); PLATELET COUNT 479 10/3/uL (150-400); RBC DISTRIBUTION WIDTH 16.1 % (12.0-16.0); RED CELL COUNT 3.09 10/6/uL (4.0-5.6); WHITE BLOOD CELLS 12.9 10/3/uL (4.5-10.5)
[2016-05-06 06:57] LABS: MANUAL DIFF YES %
[2016-05-06 07:08] LABS: BUN (BLOOD UREA NITROGEN) 1 MG/DL (6-23); CALCIUM, SERUM 7.9 MG/DL (8.5-10.4); CHLORIDE, SERUM 95 MMOL/L (96-112); CO2 (CARBON DIOXIDE) 31 MMOL/L (24-34); CREATININE 0.51 MG/DL (0.55-1.02); GFR AFRICAN AMERICAN 127 ML/MIN (>=60); GFR NON AFRICAN AMERICAN 110 ML/MIN (>=60); PHOSPHORUS, SERUM 2.1 MG/DL (2.5-4.5); SODIUM, SERUM 138 MMOL/L (135-148)
[2016-05-06 07:13] LABS: GLUCOSE, SERUM 197 MG/DL (60-99); POTASSIUM, SERUM 2.7 MMOL/L (3.5-5.3)
[2016-05-06 07:27] LABS: BAND NEUTROPHILS 20 %; EOSINOPHILS 1 %; EOSINOPHILS ABSOLUTE (CALC) 0.13 10/3/uL (0.0-0.53); IMMATURE GRANS ABSOLUTE (CALC) 0.26 10/3/uL (0.0-0.11); LYMPHOCYTES 5 %; LYMPHOCYTES ABSOLUTE (CALC) 0.65 10/3/uL (0.67-4.30); METAMYELOCYTES 2 %; MONOCYTES 5 %; MONOCYTES ABSOLUTE (CALC) 0.65 10/3/uL (0.21-1.20); NEUTROPHILS ABSOLUTE (CALC) 11.22 10/3/uL (2.02-8.40); PLATELET ESTIMATE SLT INC (ADEQUATE); POLYCHROMASIA 1+ (2-5/OIF) (0-1/OIF); SEGMENTED NEUTROPHIL (0) 67 %; TOTAL NUCLEATED CELLS 100
[2016-05-07 06:34] LABS: HEMATOCRIT 28.1 % (36.0-48.0); HEMOGLOBIN 9.2 g/dL (12.0-16.0); MANUAL DIFF YES %; MEAN CORPUS HGB CONC 32.7 g/dL (32.0-36.0); MEAN CORPUSCULAR VOLUME 85.4 fL (80-100); MEAN PLATELET VOLUME 10.6 fL (9.2-13.0); NUCLEATED RED BLOOD CELLS 0.2 /100WBC (0-0); PLATELET COUNT 571 10/3/uL (150-400); RBC DISTRIBUTION WIDTH 16.2 % (12.0-16.0); RED CELL COUNT 3.29 10/6/uL (4.0-5.6); WHITE BLOOD CELLS 14.8 10/3/uL (4.5-10.5)
[2016-05-07 06:43] LABS: A/G RATIO 0.4 (0.7-1.9); ALBUMIN 1.7 G/DL (3.5-5.0); CALCIUM, SERUM 7.8 MG/DL (8.5-10.4); CHLORIDE, SERUM 96 MMOL/L (96-112); CO2 (CARBON DIOXIDE) 29 MMOL/L (24-34); CREATININE 0.48 MG/DL (0.55-1.02); GFR AFRICAN AMERICAN 130 ML/MIN (>=60); GFR NON AFRICAN AMERICAN 112 ML/MIN (>=60); GLOBULIN 4.6 G/DL (2.5-4.1); GLUCOSE, SERUM 181 MG/DL (60-99); SGPT(ALT) 20 U/L (5-65); SODIUM, SERUM 138 MMOL/L (135-148); TOTAL PROTEIN 6.3 G/DL (6.0-8.5)
[2016-05-07 06:44] LABS: ALKALINE PHOSPHATASE 154 U/L (45-117); BUN (BLOOD UREA NITROGEN) 2 MG/DL (6-23); PHOSPHORUS, SERUM 2.8 MG/DL (2.5-4.5); POTASSIUM, SERUM 2.8 MMOL/L (3.5-5.3); TOTAL BILIRUBIN 0.3 MG/DL (0-1.2)
[2016-05-07 06:45] LABS: SGOT(AST) 49 U/L (5-40)
[2016-05-07 07:02] LABS: PREALBUMIN 4.8 MG/DL (17.0-43.0)
[2016-05-07 07:05] LABS: BAND NEUTROPHILS 20 %; EOSINOPHILS 3 %; EOSINOPHILS ABSOLUTE (CALC) 0.44 10/3/uL (0.0-0.53); GIANT PLATELET OCC; IMMATURE GRANS ABSOLUTE (CALC) 0.44 10/3/uL (0.0-0.11); LYMPHOCYTES 2 %; METAMYELOCYTES 2 %; MONOCYTES 4 %; MONOCYTES ABSOLUTE (CALC) 0.59 10/3/uL (0.21-1.20); MYELOCYTES 1 %; NEUTROPHILS ABSOLUTE (CALC) 13.02 10/3/uL (2.02-8.40); PLATELET ESTIMATE SLT INC (ADEQUATE); POLYCHROMASIA 1+ (2-5/OIF) (0-1/OIF); SEGMENTED NEUTROPHIL (0) 68 %; TOTAL NUCLEATED CELLS 100; TOXIC GRANULATION 1+
[2016-05-07 11:06] LABS: TRIGLYCERIDE 957 MG/DL (< 150)
[2016-05-08 07:09] LABS: HEMATOCRIT 26.1 % (36.0-48.0); HEMOGLOBIN 8.6 g/dL (12.0-16.0); MANUAL DIFF YES %; MEAN CORPUSCULAR HEMOGLOB 28.6 pg (26.0-34.0); MEAN CORPUSCULAR VOLUME 86.7 fL (80-100); MEAN PLATELET VOLUME 10.7 fL (9.2-13.0); NUCLEATED RED BLOOD CELLS 0.5 /100WBC (0-0); PLATELET COUNT 568 10/3/uL (150-400); RBC DISTRIBUTION WIDTH 16.5 % (12.0-16.0); RED CELL COUNT 3.01 10/6/uL (4.0-5.6); WHITE BLOOD CELLS 15.4 10/3/uL (4.5-10.5)
[2016-05-08 07:18] LABS: BUN (BLOOD UREA NITROGEN) 3 MG/DL (6-23); CALCIUM, SERUM 8.1 MG/DL (8.5-10.4); CHLORIDE, SERUM 98 MMOL/L (96-112); CO2 (CARBON DIOXIDE) 27 MMOL/L (24-34); CREATININE 0.53 MG/DL (0.55-1.02); GFR AFRICAN AMERICAN 126 ML/MIN (>=60); GFR NON AFRICAN AMERICAN 108 ML/MIN (>=60); PHOSPHORUS, SERUM 2.6 MG/DL (2.5-4.5); POTASSIUM, SERUM 3.1 MMOL/L (3.5-5.3); SODIUM, SERUM 139 MMOL/L (135-148)
[2016-05-08 07:19] LABS: GLUCOSE, SERUM 244 MG/DL (60-99)
[2016-05-08 07:23] LABS: BAND NEUTROPHILS 2 %; EOSINOPHILS 4 %; EOSINOPHILS ABSOLUTE (CALC) 0.62 10/3/uL (0.0-0.53); IMMATURE GRANS ABSOLUTE (CALC) 1.08 10/3/uL (0.0-0.11); LYMPHOCYTES 10 %; LYMPHOCYTES ABSOLUTE (CALC) 1.54 10/3/uL (0.67-4.30); METAMYELOCYTES 4 %; MONOCYTES 6 %; MONOCYTES ABSOLUTE (CALC) 0.92 10/3/uL (0.21-1.20); MYELOCYTES 3 %; NEUTROPHILS ABSOLUTE (CALC) 11.24 10/3/uL (2.02-8.40); PLATELET ESTIMATE SLT INC (ADEQUATE); RBC MORPHOLOGY NORM (NORMAL); SEGMENTED NEUTROPHIL (0) 71 %; TOTAL NUCLEATED CELLS 100
[2016-05-09 07:24] LABS: BASOPHILS 0.2 %; BASOPHILS ABSOLUTE 0.04 10/3/uL (0.0-0.16); EOSINOPHILS 3.4 %; EOSINOPHILS ABSOLUTE 0.56 10/3/uL (0.0-0.53); HEMOGLOBIN 8.8 g/dL (12.0-16.0); IMMATURE GRANULOCYTES 6.7 %; LYMPHOCYTES 7.4 %; LYMPHOCYTES ABSOLUTE 1.22 10/3/uL (0.67-4.30); MANUAL DIFF NO %; MEAN CORPUS HGB CONC 32.6 g/dL (32.0-36.0); MEAN CORPUSCULAR HEMOGLOB 28.3 pg (26.0-34.0); MEAN CORPUSCULAR VOLUME 86.8 fL (80-100); MEAN PLATELET VOLUME 10.5 fL (9.2-13.0); MONOCYTES 6.3 %; MONOCYTES ABSOLUTE 1.03 10/3/uL (0.21-1.20); NEUTROPHILS ABSOLUTE 12.45 10/3/uL (2.02-8.40); NUCLEATED RED BLOOD CELLS 0.8 /100WBC (0-0); PLATELET COUNT 632 10/3/uL (150-400); RBC DISTRIBUTION WIDTH 16.2 % (12.0-16.0); RED CELL COUNT 3.11 10/6/uL (4.0-5.6); WHITE BLOOD CELLS 16.4 10/3/uL (4.5-10.5)
[2016-05-09 07:26] LABS: A/G RATIO 0.6 (0.7-1.9); ALBUMIN 2.6 G/DL (3.5-5.0); ALKALINE PHOSPHATASE 139 U/L (45-117); BUN (BLOOD UREA NITROGEN) 8 MG/DL (6-23); CALCIUM, SERUM 8.4 MG/DL (8.5-10.4); CHLORIDE, SERUM 92 MMOL/L (96-112); CO2 (CARBON DIOXIDE) 32 MMOL/L (24-34); CREATININE 0.66 MG/DL (0.55-1.02); GFR AFRICAN AMERICAN 117 ML/MIN (>=60); GFR NON AFRICAN AMERICAN 101 ML/MIN (>=60); GLOBULIN 4.5 G/DL (2.5-4.1); GLUCOSE, SERUM 268 MG/DL (60-99); PHOSPHORUS, SERUM 3.8 MG/DL (2.5-4.5); SGPT(ALT) 17 U/L (5-65); SODIUM, SERUM 136 MMOL/L (135-148); TOTAL BILIRUBIN 0.6 MG/DL (0-1.2); TOTAL PROTEIN 7.1 G/DL (6.0-8.5); TRIGLYCERIDE 763 MG/DL (< 150)
[2016-05-09 07:27] LABS: SGOT(AST) 40 U/L (5-40)
[2016-05-09 07:28] LABS: POTASSIUM, SERUM 3.4 MMOL/L (3.5-5.3)
[2016-05-09 07:53] LABS: BAND NEUTROPHILS 7 %; IMMATURE GRANS ABSOLUTE (CALC) 0.49 10/3/uL (0.0-0.11); LYMPHOCYTES 6 %; LYMPHOCYTES ABSOLUTE (CALC) 0.98 10/3/uL (0.67-4.30); METAMYELOCYTES 2 %; MONOCYTES 2 %; MONOCYTES ABSOLUTE (CALC) 0.33 10/3/uL (0.21-1.20); MYELOCYTES 1 %; PLATELET ESTIMATE INC (ADEQUATE); SEGMENTED NEUTROPHIL (0) 82 %; TARGET CELLS OCC (1-2/OIF) (0-1/OIF); TOTAL NUCLEATED CELLS 100
[2016-05-10 06:36] LABS: CHLORIDE, SERUM 91 MMOL/L (96-112); CO2 (CARBON DIOXIDE) 29 MMOL/L (24-34); GFR AFRICAN AMERICAN 121 ML/MIN (>=60); GFR NON AFRICAN AMERICAN 104 ML/MIN (>=60); GLUCOSE, SERUM 241 MG/DL (60-99); PHOSPHORUS, SERUM 3.3 MG/DL (2.5-4.5); POTASSIUM, SERUM 3.2 MMOL/L (3.5-5.3); SODIUM, SERUM 135 MMOL/L (135-148)
[2016-05-10 06:37] LABS: BUN (BLOOD UREA NITROGEN) 13 MG/DL (6-23)
[2016-05-11 07:20] LABS: A/G RATIO 0.9 (0.7-1.9); ALBUMIN 3.4 G/DL (3.5-5.0); ALKALINE PHOSPHATASE 110 U/L (45-117); BUN (BLOOD UREA NITROGEN) 15 MG/DL (6-23); CALCIUM, SERUM 9.2 MG/DL (8.5-10.4); CHLORIDE, SERUM 98 MMOL/L (96-112); CO2 (CARBON DIOXIDE) 24 MMOL/L (24-34); CREATININE 0.63 MG/DL (0.55-1.02); GFR AFRICAN AMERICAN 119 ML/MIN (>=60); GFR NON AFRICAN AMERICAN 102 ML/MIN (>=60); GLUCOSE, SERUM 218 MG/DL (60-99); POTASSIUM, SERUM 3.7 MMOL/L (3.5-5.3); SGOT(AST) 27 U/L (5-40); SGPT(ALT) 14 U/L (5-65); SODIUM, SERUM 135 MMOL/L (135-148); TOTAL BILIRUBIN 0.3 MG/DL (0-1.2); TOTAL PROTEIN 7.4 G/DL (6.0-8.5); TRIGLYCERIDE 805 MG/DL (< 150)
[2016-05-11 07:22] LABS: HEMATOCRIT 28.7 % (36.0-48.0); HEMOGLOBIN 9.1 g/dL (12.0-16.0); MEAN CORPUS HGB CONC 31.7 g/dL (32.0-36.0); MEAN CORPUSCULAR HEMOGLOB 27.9 pg (26.0-34.0); MEAN PLATELET VOLUME 10.2 fL (9.2-13.0); NUCLEATED RED BLOOD CELLS 0.4 /100WBC (0-0); RBC DISTRIBUTION WIDTH 16.6 % (12.0-16.0); RED CELL COUNT 3.26 10/6/uL (4.0-5.6); WHITE BLOOD CELLS 15.2 10/3/uL (4.5-10.5)
[2016-05-11 07:25] LABS: PLATELET COUNT 778 10/3/uL (150-400)
[2016-05-11 07:28] LABS: MANUAL DIFF YES %
[2016-05-11 08:21] LABS: BAND NEUTROPHILS 11 %; EOSINOPHILS 3 %; EOSINOPHILS ABSOLUTE (CALC) 0.46 10/3/uL (0.0-0.53); IMMATURE GRANS ABSOLUTE (CALC) 1.06 10/3/uL (0.0-0.11); LYMPHOCYTES 14 %; LYMPHOCYTES ABSOLUTE (CALC) 2.13 10/3/uL (0.67-4.30); METAMYELOCYTES 5 %; MONOCYTES 7 %; MONOCYTES ABSOLUTE (CALC) 1.06 10/3/uL (0.21-1.20); MYELOCYTES 2 %; NEUTROPHILS ABSOLUTE (CALC) 10.49 10/3/uL (2.02-8.40); PLATELET ESTIMATE INC (ADEQUATE); SEGMENTED NEUTROPHIL (0) 58 %; TOTAL NUCLEATED CELLS 100
[2016-05-11 08:22] LABS: POLYCHROMASIA 1+ (2-5/OIF) (0-1/OIF); TEARDROP SHAPED RBCS OCC (0-2/OIF)
[2016-05-11 08:24] LABS: MICROCYTES 1+ (5-10/OIF) (0-5/OIF); TARGET CELLS OCC (1-2/OIF) (0-1/OIF)
[2016-05-11 08:25] LABS: ANISOCYTOSIS 1+ (5-10/OIF) (0-5/OIF); HELMET CELLS OCC (0-2/OIF)
[2016-05-12 06:53] LABS: BUN (BLOOD UREA NITROGEN) 15 MG/DL (6-23); CALCIUM, SERUM 8.8 MG/DL (8.5-10.4); CHLORIDE, SERUM 102 MMOL/L (96-112); CO2 (CARBON DIOXIDE) 24 MMOL/L (24-34); CREATININE 0.61 MG/DL (0.55-1.02); GFR AFRICAN AMERICAN 120 ML/MIN (>=60); GFR NON AFRICAN AMERICAN 104 ML/MIN (>=60); GLUCOSE, SERUM 276 MG/DL (60-99); PHOSPHORUS, SERUM 3.7 MG/DL (2.5-4.5); POTASSIUM, SERUM 3.9 MMOL/L (3.5-5.3); SODIUM, SERUM 137 MMOL/L (135-148)
[2016-05-12 06:56] LABS: BASOPHILS 0.6 %; BASOPHILS ABSOLUTE 0.08 10/3/uL (0.0-0.16); EOSINOPHILS 3.2 %; EOSINOPHILS ABSOLUTE 0.39 10/3/uL (0.0-0.53); HEMATOCRIT 27.9 % (36.0-48.0); HEMOGLOBIN 8.7 g/dL (12.0-16.0); IMMATURE GRANULOCYTES 3.9 %; IMMATURE GRANULOCYTES ABSOLUTE 0.48 10/3/uL (0.0-0.11); LYMPHOCYTES 14.8 %; LYMPHOCYTES ABSOLUTE 1.83 10/3/uL (0.67-4.30); MEAN CORPUS HGB CONC 31.2 g/dL (32.0-36.0); MEAN CORPUSCULAR HEMOGLOB 27.6 pg (26.0-34.0); MEAN CORPUSCULAR VOLUME 88.6 fL (80-100); MONOCYTES 10.2 %; MONOCYTES ABSOLUTE 1.26 10/3/uL (0.21-1.20); NEUTROPHILS 67.3 %; NEUTROPHILS ABSOLUTE 8.31 10/3/uL (2.02-8.40); NUCLEATED RED BLOOD CELLS 0.4 /100WBC (0-0); PLATELET COUNT 705 10/3/uL (150-400); RBC DISTRIBUTION WIDTH 16.9 % (12.0-16.0); RED CELL COUNT 3.15 10/6/uL (4.0-5.6); WHITE BLOOD CELLS 12.4 10/3/uL (4.5-10.5)
[2016-05-12 06:57] LABS: MANUAL DIFF NO %
[2016-05-13 05:44] LABS: BUN (BLOOD UREA NITROGEN) 14 MG/DL (6-23); CALCIUM, SERUM 8.9 MG/DL (8.5-10.4); CHLORIDE, SERUM 99 MMOL/L (96-112); CO2 (CARBON DIOXIDE) 21 MMOL/L (24-34); CREATININE 0.54 MG/DL (0.55-1.02); GFR AFRICAN AMERICAN 125 ML/MIN (>=60); GFR NON AFRICAN AMERICAN 108 ML/MIN (>=60); PHOSPHORUS, SERUM 4.2 MG/DL (2.5-4.5); POTASSIUM, SERUM 3.7 MMOL/L (3.5-5.3); SODIUM, SERUM 135 MMOL/L (135-148); TRIGLYCERIDE 735 MG/DL (< 150)
[2016-05-13 05:45] LABS: GLUCOSE, SERUM 188 MG/DL (60-99)
[2016-05-13 06:13] LABS: HEMOGLOBIN 9.6 g/dL (12.0-16.0); MEAN CORPUS HGB CONC 31.1 g/dL (32.0-36.0); MEAN CORPUSCULAR HEMOGLOB 27.8 pg (26.0-34.0); MEAN CORPUSCULAR VOLUME 89.6 fL (80-100); MEAN PLATELET VOLUME 10.1 fL (9.2-13.0); PLATELET COUNT 630 10/3/uL (150-400); RBC DISTRIBUTION WIDTH 17.6 % (12.0-16.0); RED CELL COUNT 3.45 10/6/uL (4.0-5.6); WHITE BLOOD CELLS 10.6 10/3/uL (4.5-10.5)
[2016-05-13 06:14] LABS: HEMATOCRIT 30.9 % (36.0-48.0); MANUAL DIFF YES %
[2016-05-13 06:43] LABS: ANISOCYTOSIS 1+ (5-10/OIF) (0-5/OIF); BAND NEUTROPHILS 3 %; IMMATURE GRANS ABSOLUTE (CALC) 0.21 10/3/uL (0.0-0.11); LYMPHOCYTES 13 %; LYMPHOCYTES ABSOLUTE (CALC) 1.38 10/3/uL (0.67-4.30); METAMYELOCYTES 2 %; MONOCYTES 4 %; MONOCYTES ABSOLUTE (CALC) 0.42 10/3/uL (0.21-1.20); NEUTROPHILS ABSOLUTE (CALC) 8.59 10/3/uL (2.02-8.40); PLATELET ESTIMATE INC (ADEQUATE); POLYCHROMASIA 1+ (2-5/OIF) (0-1/OIF); SEGMENTED NEUTROPHIL (0) 78 %; TOTAL NUCLEATED CELLS 100
[2016-05-13] MEDS ORDERED: PCET PO (18:23)
[2016-05-13] MEDS ORDERED: LANTUS SC (18:24)
== END 2016-05-13 22:44 | disposition home or self-care (01) | DRG 438 ==
LOC: ER 05:31 → 4EA 07:48 → ER/OF 07:58 → 5SO 08:52
PROVIDERS: Hospitalist; Internal Medicine; Internal Medicine Critical Care Medicine; Internal Medicine Gastroenterology; Nurse Practitioner Acute Care; Specialist
PROC: 02HV33Z Insertion of Infusion Device into Superior Vena Cava, Percutaneous Approach (ICD-10-PCS; principal; 2016-05-07)
PROC: 4A02X4A Measurement of Cardiac Electrical Activity, Guidance, External Approach (ICD-10-PCS; 2016-05-07)
PROC: 3E0436Z Introduction of Nutritional Substance into Central Vein, Percutaneous Approach (ICD-10-PCS; 2016-05-07)
DX: K85.80 Other acute pancreatitis without necrosis or infection (principal); J96.01 Acute respiratory failure with hypoxia; J18.9 Pneumonia, unspecified organism; E27.40 Unspecified adrenocortical insufficiency; K86.3 Pseudocyst of pancreas; E87.1 Hypo-osmolality and hyponatremia; K76.0 Fatty (change of) liver, not elsewhere classified; D64.9 Anemia, unspecified; E03.9 Hypothyroidism, unspecified; K21.9 Gastro-esophageal reflux disease without esophagitis; R60.1 Generalized edema; E78.1 Pure hyperglyceridemia; E11.65 Type 2 diabetes mellitus with hyperglycemia; E66.9 Obesity, unspecified; Z90.49 Acquired absence of other specified parts of digestive tract; Z79.899 Other long term (current) drug therapy; Z98.890 Other specified postprocedural states; Z80.8 Family history of malignant neoplasm of other organs or systems; Z90.710 Acquired absence of both cervix and uterus; Z79.84 Long term (current) use of oral hypoglycemic drugs; Z68.31 Body mass index [BMI] 31.0-31.9, adult; F41.8 Other specified anxiety disorders
CPT/HCPCS: 36569; 36600; 71010; 71250; 71275; 74170; 74176; 74178; 80048; 80053; 80061; 80076; 80307; 81001; 82140; 82150; 82248; 82330; 82805; 82962; 83036; 83605; 83615; 83690; 83735; 83880; 84100; 84132; 84134; 84145; 84439; 84443; 84478; 85025; 85610; 85730; 87040; 93005; 94640; 96365; 96375; 99285; A9270-GY; C1751; C9113; J1170; J1720; J1940; J1956; J2405; J2543; J2550; J3411; P9047; Q9967

== ENCOUNTER 2016-05-22 23:50 | Emergency (ER) | payer BC, SELFPAY ==
[2016-05-22 22:55] LABS: BASOPHILS ABSOLUTE 0.04 10/3/uL (0.0-0.16); EOSINOPHILS 14.1 %; EOSINOPHILS ABSOLUTE 0.59 10/3/uL (0.0-0.53); HEMATOCRIT 33.6 % (36.0-48.0); HEMOGLOBIN 10.7 g/dL (12.0-16.0); IMMATURE GRANULOCYTES 0.2 %; IMMATURE GRANULOCYTES ABSOLUTE 0.01 10/3/uL (0.0-0.11); LYMPHOCYTES 34.5 %; LYMPHOCYTES ABSOLUTE 1.44 10/3/uL (0.67-4.30); MEAN CORPUS HGB CONC 31.8 g/dL (32.0-36.0); MEAN CORPUSCULAR HEMOGLOB 28.2 pg (26.0-34.0); MEAN CORPUSCULAR VOLUME 88.7 fL (80-100); MEAN PLATELET VOLUME 9.4 fL (9.2-13.0); MONOCYTES 11.5 %; MONOCYTES ABSOLUTE 0.48 10/3/uL (0.21-1.20); NEUTROPHILS 38.7 %; NEUTROPHILS ABSOLUTE 1.61 10/3/uL (2.02-8.40); PLATELET COUNT 445 10/3/uL (150-400); RBC DISTRIBUTION WIDTH 16.4 % (12.0-16.0); RED CELL COUNT 3.79 10/6/uL (4.0-5.6); WHITE BLOOD CELLS 4.2 10/3/uL (4.5-10.5)
[2016-05-22 22:56] LABS: MANUAL DIFF NO %
[2016-05-22 23:00] LABS: ASCORBIC ACID (UR NOT ORDER) NEG (NEG); BILIRUBIN, URINE NEGATIVE (NEG); ER URINALYSIS TAT 0 Hrs 09 Mins; KETONE, URINE TRACE MG/DL (NEG); LEUKOCYTE ESTERASE(NOT OR MOD (NEG); NITRITE (URINE) NEG (NEG); WBC (NOT ORDERED) (RFLEX) 16 (0-5)
[2016-05-22 23:10] LABS: A/G RATIO 0.9 (0.7-1.9); ALBUMIN 3.6 G/DL (3.5-5.0); CALCIUM, SERUM 9.2 MG/DL (8.5-10.4); CHLORIDE, SERUM 102 MMOL/L (96-112); GFR AFRICAN AMERICAN 115 ML/MIN (>=60); GFR NON AFRICAN AMERICAN 99 ML/MIN (>=60); POTASSIUM, SERUM 3.7 MMOL/L (3.5-5.3); SGOT(AST) 75 U/L (5-40); SGPT(ALT) 56 U/L (5-65); SODIUM, SERUM 141 MMOL/L (135-148); TOTAL BILIRUBIN 0.3 MG/DL (0-1.2); TOTAL PROTEIN 7.6 G/DL (6.0-8.5)
[2016-05-22 23:11] LABS: ALKALINE PHOSPHATASE 77 U/L (45-117); BUN (BLOOD UREA NITROGEN) 7 MG/DL (6-23); CO2 (CARBON DIOXIDE) 26 MMOL/L (24-34); GLUCOSE, SERUM 130 MG/DL (60-99)
[~2016-05-22 23:50] MED LIST: CORTEF20 MG PO; CORTEF5 PO; CRESTOR40 MG PO; FLORINEF0.1 MG PO; GLUCPH PO; LANTUS SC; LEVOTHYROXIN100 MCG PO; NEXIUM20 M1 PO; PCET PO; TRICOR145 PO; ZYRTEC ALLGY10 MG PO
[2016-05-23 04:49] LABS: LACTATE 0.9 MMOL/L (0.3-2.4)
== END 2016-05-23 05:55 | disposition home or self-care (01) ==
LOC: ER 23:50
PROVIDERS: Emergency Medicine; Nurse Practitioner
DX: N39.0 Urinary tract infection, site not specified (principal); R11.0 Nausea; E11.65 Type 2 diabetes mellitus with hyperglycemia; E78.5 Hyperlipidemia, unspecified; K21.9 Gastro-esophageal reflux disease without esophagitis; Z90.710 Acquired absence of both cervix and uterus; Z79.4 Long term (current) use of insulin; Z79.899 Other long term (current) drug therapy
CPT/HCPCS: 80053; 81001; 83605; 83690; 84145; 85025; 87040; 87086; 96374; 96375; 99285; J1170; J2405

== ENCOUNTER 2016-05-27 20:57 | Inpatient (IN) | payer BC ==
--- NOTE | ~2016-05-27 | HP ---
History And Physical [place] [id number] [place]. [address] NAME: BRYAN SANCHEZ : [birth year] STATUS : ADM IN [facility]#: [id number] AGE: 55 ADM/REG DATE : 05/27/16 MR#: [id number] REPORT SERV DATE: 05/28/16 DICTATED BY: CECILIA MARRERO DATE: 05/28/16 REPORT STATUS : Draft TRANSCRIBED BY: MODLucia DATE: 05/28/16 DATE OF ADMISSION: 05/27/2016 CHIEF COMPLAINT: A 55-year-old female presenting with progressive abdominal pain and melena. HISTORY OF PRESENT ILLNESS: The patient's history was obtained through careful interview with the patient and coupled with review of [facility] and [facility] medical records. The patient was hospitalized just in April in early May 2016 with severe acute pancreatitis. This apparently even lead to ARDS and a complicated hospital stay. She was able to be discharged about two weeks ago, but states that her abdominal pain never really subsided. As she begins to recollect the history and presentation of her abdominal pain and nausea, it may have begun all the way back in February 2016 and she reflects that she started Crestor as a new medication in January 2016 just prior to this. The main symptoms of her pancreatitis seemed to have come on in April 2016 and she reflects that she started metformin as a new medication at that time as well. She describes progressive epigastric abdominal pain that radiates to the back, a dull quality. Usually, it has been about 8/10 severity on a daily basis, but now is progressed to 10/10 in severity. Today, she developed nausea and dry heaves, but no vomiting. She describes about a 10-pound weight loss (although the thinks it has been more) over the last three weeks. She has had a very poor appetite. She has had no diarrhea, no fevers or chills. She has suffered lightheadedness. The patient describes very dark even black stools. No bright red blood per rectum. REVIEW OF SYSTEMS: Otherwise, a 14-point review of systems was obtained and was negative. PAST MEDICAL HISTORY: 1. Adrenal insufficiency secondary to previous adrenalectomy. 2. Pancreatitis. 3. Pneumonia. 4. Elevated cholesterol. 5. Elevated triglycerides. 6. Liver cyst, 3.4 cm. 7. Pseudocyst formation. 8. Gastroesophageal reflux disorder. 9. Diabetes. 10.Hypothyroidism. 11.ARDS. 12.Negative echocardiogram in February 2016. History And Physical [address] [address] NAME: BRYAN SANCHEZ : [birth year] STATUS : ADM IN PAT#: [id number] AGE: 55 ADM/REG DATE : 05/27/16 MR#: [id number] REPORT SERV DATE: 05/28/16 DICTATED BY: CECILIA MARRERO DATE: 05/28/16 REPORT STATUS : Draft TRANSCRIBED BY: PAT DATE: 05/28/16 PAST SURGICAL HISTORY: 1. Cholecystectomy. 2. Hysterectomy. 3. Adrenalectomy. 4. . ALLERGIES: NO KNOWN DRUG ALLERGIES. SOCIAL HISTORY: Lives in [place], [place]. Is , has one son, three grandchildren, all of whom lives in [place], [place]. No tobacco abuse. No alcohol abuse. FAMILY HISTORY: Cancer. CURRENT MEDICATIONS: Nexium 20 mg p.o. daily, Tricor 145 mg p.o. daily, Florinef 0.1 mg in the morning, Cortef 10 mg in the morning and 5 mg at night, Lantus 40 units subcutaneous at bedtime, levothyroxine 100 mcg p.o. daily, metformin 500 mg p.o. b.i.d., Phenergan 25 mg p.o. q.6 hours p.r.n., and Crestor, she stopped this medication the day prior to admission. PHYSICAL EXAMINATION: VITAL SIGNS: Temperature 98.4, pulse 91, blood pressure 120/60, respiratory rate 16, O2 saturation 93% on room air. GENERAL: An ill-appearing female, in evidence of distress secondary to nausea and abdominal pain. HEENT: Pupils equal, round, and reactive to light. No conjunctival pallor. No scleral icterus. Nares are patent. Oropharynx is clear of obstruction. Mildly dry mucous membranes. NECK: Trachea midline. No thyromegaly. LYMPH: No cervical lymphadenopathy. No supraclavicular lymphadenopathy. No inguinal lymphadenopathy. RESPIRATORY: Clear to auscultation at bases. No wheezes, rales, or rhonchi. Normal respiratory effort. CARDIOVASCULAR: Regular rate and rhythm. No murmurs, rubs, or gallops. No extremity edema is appreciated. ABDOMEN: The patient has significant epigastric abdominal pain, really nonfocal though. No specific right upper quadrant abdominal discomfort. There is guarding though. No rebound effect. Nondistended abdomen with active bowel tones. No appreciable hepatosplenomegaly. DERMATOLOGICAL: Warm and dry extremities, no pallor, no cyanosis. PSYCHIATRIC: Notably flat affect. She is in a discouraged mood. Alert and oriented x3. LABORATORY DATA: White blood count 3.7, hemoglobin 9, hematocrit 24, platelets 373. Sodium 146, potassium 2.6, chloride 114, bicarb 23, BUN 7, creatinine 0.29, glucose 77, calcium 6.8, lipase 71, albumin 2.6. STUDIES: 1. Chest x-ray by my own evaluation shows no acute cardiopulmonary process. 2. CT scan of the abdomen and pelvis shows acute pancreatitis changes, stable liver cyst History And Physical [address] [address] NAME: BRYAN SANCHEZ : 64 STATUS : ADM IN [facility]#: [id number] AGE: 55 ADM/REG DATE : 05/27/16 MR#: [id number] REPORT SERV DATE: 05/28/16 DICTATED BY: CECILIA MARRERO DATE: 05/28/16 REPORT STATUS : Draft TRANSCRIBED BY: PAT DATE: 05/28/16 at 3.4 cm and 2 pseudocyst which are actually decreased in size compared to previous CT scan. The largest measuring 9.2 x 4.9 cm now. ASSESSMENT AND PLAN: 1. Acute pancreatitis, onset correlate with two new medications including metformin which is a class 3 risk and Crestor which is a class 4 risk, status post cholecystectomy and the patient denies any alcohol use. Check fasting lipid panel. Place on IV narcotic pain management. IV fluids. IV antiemetics and place patient on a clear water and ice chips diet only. 2. Adrenal crisis with lightheadedness and hypokalemia. We will correct potassium. Check magnesium and place on stress dose IV hydrocortisone. 3. Weight loss. Check prealbumin. 4. Melena with anemia. Place on IV proton pump inhibitor. Consult Dr. Barriga, rare/endangered species specialist. 5. Pseudocyst, decreased in size and do not appear complicated by CT scan. TAY/MODL Cecilia Marrero M.D. / [id number] CC: MD Desi Das N.P. Richard Sadowitz, M.D.
--- NOTE | ~2016-05-27 | DS ---
Discharge Summary [facility] [address] [place]. [address] NAME: BRYAN SANCHEZ : 64 STATUS : DIS IN PAT#: [id number] AGE: 55 ADM/REG DATE : 05/27/16 MR#: [id number] REPORT SERV DATE: 05/31/16 DICTATED BY: PATY VALLE DATE: 05/30/16 REPORT STATUS : Draft TRANSCRIBED BY: MODL DATE: 05/30/16 ADMISSION DATE: 05/27/2016 DISCHARGE DATE: 05/30/2016 The patient is a 55-year-old female with a history of renal insufficiency secondary to adrenalectomy, pancreatitis, hyperlipidemia, diabetes, and hypothyroidism, who presented to the hospital with a complaint of progressive abdominal pain and melena. For further details please refer to H and P dictated by Dr. Giancarlo Rodríguez on 05/28/2016. HOSPITAL COURSE: Upon presentation to the emergency room, preliminary workup included a lipase level which was low at 73. However, given her significant abdominal pain a CT abdomen was ordered which was positive for pancreatitis. The patient was started on IV fluids and IV narcotics for pain control. The patient was also kept n.p.o. Given her adrenal insufficiency secondary to adrenalectomy, the patient was started on hydrocortisone. The patient was admitted to the hospital for further management. During her hospital course the patient remained hemodynamically stable with a ventral resolution of her nausea and abdominal pain. The patient was started on p.o. diet yesterday which she tolerated well. Given resolution of her abdominal pain and given her ability to tolerate p.o. diet, the patient will therefore be discharged home to follow up with primary care physician. Plan has been discussed with the patient who voices understanding and is agreeable with that plan. DISCHARGE DIAGNOSES: 1. Acute pancreatitis. 2. Adrenal insufficiency secondary to adrenalectomy. 3. Pseudocyst. 4. Hypokalemia. DISCHARGE PHYSICAL EXAMINATION: VITAL SIGNS: The patient's blood pressure 129/65, pulse of 78, respirations 20, O2 saturation 93% on room air, and temperature afebrile at 98.3. HEENT: Normocephalic and atraumatic. Extraocular motors intact. Moist oral mucosa. Anicteric sclerae. NECK: Trachea midline and symmetric. No thyromegaly noted. No JVD present. No masses palpated. CHEST: Nontender to palpation. No scars noted. CARDIOVASCULAR: Regular rate and rhythm. S1, S2. No murmurs, rubs, or gallops. LUNGS: Clear to auscultation bilaterally. No added breath sounds. ABDOMEN: Positive bowel sounds. Nontender. Nondistended. No masses palpated. No pain elicited with deep palpation. EXTREMITIES: No cyanosis, no clubbing, no edema. NEURO: Alert and oriented x3. No focal deficits appreciated. IMAGING: CT abdomen and pelvis without contrast. Impression: 1. CT pattern consistent with acute pancreatitis request correlation with appropriate laboratory testing. 2. Chronic peripancreatic pseudocyst also to a poorly defined both Discharge Summary [address] [address] NAME: BRYAN SANCHEZ : 64 STATUS : DIS IN [facility]#: [id number] AGE: 55 ADM/REG DATE : 05/27/16 MR#: [id number] REPORT SERV DATE: 05/31/16 DICTATED BY: PATY VALLE DATE: 05/30/16 REPORT STATUS : Draft TRANSCRIBED BY: PAT DATE: 05/30/16 have decreased in size from 05/13/2016. Currently, the pseudocyst measures approximately 9.2 x 4.9 compared to 5.3 x 5.8, and 11.9 x 5.7, on prior exam. 3. Stable changes of cholecystectomy. 4. Nonspecific hepatomegaly and hepatic steatosis pattern is stable. 5. 4 cm right lobe hepatic cyst. 6. Stable changes of hysterectomy. DISCHARGE MEDICATIONS: 1. Fenofibrate 145 mg p.o. daily. 2. Florinef 0.1 mg p.o. every morning. 3. Cortef 10 mg p.o. every morning. 4. Cortef 5 mg p.o. every evening. 5. Insulin Lantus 40 units subcu at bedtime. 6. Levothyroxine 100 mg p.o. every morning. 7. Nexium 20 mg p.o. daily. 8. Bactrim Double Strength one tablet b.i.d. for seven days. DISPOSITION: The patient will be discharged home. DIET: Diabetic diet. ACTIVITY: As tolerated. Greater than 30 minutes were spent in discharge planning, coordinating care, providing counseling, dictation of note, medication reconciliation. VINI/PAT Paty Valle MD / [id number] CC: MD Desi Das N.P.
[2016-05-27] MEDS ORDERED: CEFT5 PO (21:28)
[2016-05-27] MEDS ORDERED: PR25 PO (21:28)
[2016-05-27 21:33] LABS: BASOPHILS 0.3 %; BASOPHILS ABSOLUTE 0.01 10/3/uL (0.0-0.16); EOSINOPHILS 15.7 %; EOSINOPHILS ABSOLUTE 0.58 10/3/uL (0.0-0.53); HEMATOCRIT 29.3 % (36.0-48.0); HEMOGLOBIN 9.4 g/dL (12.0-16.0); LYMPHOCYTES ABSOLUTE 1.44 10/3/uL (0.67-4.30); MANUAL DIFF NO %; MEAN CORPUS HGB CONC 32.1 g/dL (32.0-36.0); MEAN CORPUSCULAR HEMOGLOB 28.3 pg (26.0-34.0); MEAN CORPUSCULAR VOLUME 88.3 fL (80-100); MEAN PLATELET VOLUME 9.2 fL (9.2-13.0); MONOCYTES 11.1 %; MONOCYTES ABSOLUTE 0.41 10/3/uL (0.21-1.20); NEUTROPHILS 33.9 %; NEUTROPHILS ABSOLUTE 1.25 10/3/uL (2.02-8.40); PLATELET COUNT 373 10/3/uL (150-400); RBC DISTRIBUTION WIDTH 15.9 % (12.0-16.0); RED CELL COUNT 3.32 10/6/uL (4.0-5.6); WHITE BLOOD CELLS 3.7 10/3/uL (4.5-10.5)
[2016-05-27 21:49] LABS: BUN (BLOOD UREA NITROGEN) 7 MG/DL (6-23); CHLORIDE, SERUM 114 MMOL/L (96-112); CO2 (CARBON DIOXIDE) 23 MMOL/L (24-34); CREATININE 0.24 MG/DL (0.55-1.02); GFR AFRICAN AMERICAN 163 ML/MIN (>=60); GFR NON AFRICAN AMERICAN 141 ML/MIN (>=60); SGOT(AST) 28 U/L (5-40); SGPT(ALT) 24 U/L (5-65); SODIUM, SERUM 146 MMOL/L (135-148); TOTAL BILIRUBIN 0.2 MG/DL (0-1.2)
[2016-05-27 21:50] LABS: GLUCOSE, SERUM 77 MG/DL (60-99); POTASSIUM, SERUM 2.6 MMOL/L (3.5-5.3)
[2016-05-27 21:51] LABS: ALBUMIN 2.6 G/DL (3.5-5.0); ALKALINE PHOSPHATASE 47 U/L (45-117); CALCIUM, SERUM 6.8 MG/DL (8.5-10.4); GLOBULIN 2.5 G/DL (2.5-4.1); TOTAL PROTEIN 5.1 G/DL (6.0-8.5)
[2016-05-27 22:31] LABS: ASCORBIC ACID (UR NOT ORDER) NEG (NEG); BILIRUBIN, URINE NEGATIVE (NEG); ER URINALYSIS TAT 0 Hrs 07 Mins; KETONE, URINE NEGATIVE (NEG); LEUKOCYTE ESTERASE(NOT OR SMALL (NEG); NITRITE (URINE) NEG (NEG); WBC (NOT ORDERED) (RFLEX) 5 (0-5)
[2016-05-28 02:20] LABS: BASOPHILS 0.4 %; BASOPHILS ABSOLUTE 0.02 10/3/uL (0.0-0.16); EOSINOPHILS 3.1 %; EOSINOPHILS ABSOLUTE 0.16 10/3/uL (0.0-0.53); HEMOGLOBIN 10.8 g/dL (12.0-16.0); LYMPHOCYTES 17.6 %; MEAN CORPUSCULAR HEMOGLOB 28.4 pg (26.0-34.0); MEAN CORPUSCULAR VOLUME 88.7 fL (80-100); MEAN PLATELET VOLUME 9.3 fL (9.2-13.0); MONOCYTES 4.5 %; MONOCYTES ABSOLUTE 0.23 10/3/uL (0.21-1.20); NEUTROPHILS 74.4 %; NEUTROPHILS ABSOLUTE 3.81 10/3/uL (2.02-8.40); PLATELET COUNT 443 10/3/uL (150-400); RBC DISTRIBUTION WIDTH 15.7 % (12.0-16.0); WHITE BLOOD CELLS 5.1 10/3/uL (4.5-10.5)
[2016-05-28 02:21] LABS: HEMATOCRIT 33.7 % (36.0-48.0); MANUAL DIFF NO %
[2016-05-28 02:31] LABS: INTERNATIONAL NORMAL RATI 1.2 UNITS (-); PROTIME (NOT ORD) 14.7 SEC (12.0-14.5)
[2016-05-28 02:32] LABS: PARTIAL THROMBO TIME 28.6 SEC (22.5-37.2)
[2016-05-28 02:42] LABS: BUN (BLOOD UREA NITROGEN) 6 MG/DL (6-23); CHLORIDE, SERUM 109 MMOL/L (96-112); CO2 (CARBON DIOXIDE) 23 MMOL/L (24-34); CREATININE 0.42 MG/DL (0.55-1.02); GFR AFRICAN AMERICAN 136 ML/MIN (>=60); GFR NON AFRICAN AMERICAN 117 ML/MIN (>=60); HDL CHOLESTEROL 22 MG/DL (> 49); PREALBUMIN 18.9 MG/DL (17.0-43.0); SGOT(AST) 34 U/L (5-40); SGPT(ALT) 33 U/L (5-65); SODIUM, SERUM 143 MMOL/L (135-148); TOTAL BILIRUBIN 0.3 MG/DL (0-1.2)
[2016-05-28 02:44] LABS: ALBUMIN 3.5 G/DL (3.5-5.0); ALKALINE PHOSPHATASE 66 U/L (45-117); CALCIUM, SERUM 8.8 MG/DL (8.5-10.4); CHOL/HDL RATIO(NOT ORDER) 7.2 (0-5); CHOLESTEROL 159 MG/DL (< 200); GLOBULIN 3.5 G/DL (2.5-4.1); GLUCOSE, SERUM 141 MG/DL (60-99); NON-HDL CHOLESTEROL 137 MG/DL (< 160); POTASSIUM, SERUM 3.7 MMOL/L (3.5-5.3); TRIGLYCERIDE 446 MG/DL (< 150); ULTRASENSITIVE TSH 0.412 MCIU/ML (0.358-3.740)
[2016-05-28 03:09] LABS: PROCALCITONIN 0.05 ng/mL (<0.5)
[2016-05-29 05:00] LABS: BASOPHILS 0.2 %; BASOPHILS ABSOLUTE 0.01 10/3/uL (0.0-0.16); EOSINOPHILS 0.7 %; EOSINOPHILS ABSOLUTE 0.03 10/3/uL (0.0-0.53); HEMOGLOBIN 9.6 g/dL (12.0-16.0); IMMATURE GRANULOCYTES 0.2 %; IMMATURE GRANULOCYTES ABSOLUTE 0.01 10/3/uL (0.0-0.11); LYMPHOCYTES 32.7 %; LYMPHOCYTES ABSOLUTE 1.41 10/3/uL (0.67-4.30); MEAN CORPUS HGB CONC 31.8 g/dL (32.0-36.0); MEAN PLATELET VOLUME 9.4 fL (9.2-13.0); MONOCYTES 8.6 %; MONOCYTES ABSOLUTE 0.37 10/3/uL (0.21-1.20); NEUTROPHILS 57.6 %; NEUTROPHILS ABSOLUTE 2.48 10/3/uL (2.02-8.40); PLATELET COUNT 421 10/3/uL (150-400); RBC DISTRIBUTION WIDTH 15.9 % (12.0-16.0); RED CELL COUNT 3.43 10/6/uL (4.0-5.6); WHITE BLOOD CELLS 4.3 10/3/uL (4.5-10.5)
[2016-05-29 05:03] LABS: HEMATOCRIT 30.2 % (36.0-48.0); MANUAL DIFF NO %
[2016-05-29 05:12] LABS: A/G RATIO 1.1 (0.7-1.9); ALBUMIN 3.3 G/DL (3.5-5.0); ALKALINE PHOSPHATASE 58 U/L (45-117); BUN (BLOOD UREA NITROGEN) 5 MG/DL (6-23); CALCIUM, SERUM 8.4 MG/DL (8.5-10.4); CHLORIDE, SERUM 107 MMOL/L (96-112); CO2 (CARBON DIOXIDE) 25 MMOL/L (24-34); CREATININE 0.34 MG/DL (0.55-1.02); GFR AFRICAN AMERICAN 145 ML/MIN (>=60); GFR NON AFRICAN AMERICAN 125 ML/MIN (>=60); GLUCOSE, SERUM 113 MG/DL (60-99); POTASSIUM, SERUM 3.3 MMOL/L (3.5-5.3); SGOT(AST) 22 U/L (5-40); SGPT(ALT) 23 U/L (5-65); SODIUM, SERUM 143 MMOL/L (135-148); TOTAL PROTEIN 6.3 G/DL (6.0-8.5)
[2016-05-29 05:13] LABS: TOTAL BILIRUBIN 0.9 MG/DL (0-1.2)
[2016-05-30 06:44] LABS: A/G RATIO 1.1 (0.7-1.9); ALBUMIN 3.5 G/DL (3.5-5.0); ALKALINE PHOSPHATASE 64 U/L (45-117); CALCIUM, SERUM 8.6 MG/DL (8.5-10.4); CHLORIDE, SERUM 109 MMOL/L (96-112); CO2 (CARBON DIOXIDE) 21 MMOL/L (24-34); CREATININE 0.35 MG/DL (0.55-1.02); GFR AFRICAN AMERICAN 144 ML/MIN (>=60); GFR NON AFRICAN AMERICAN 124 ML/MIN (>=60); GLOBULIN 3.1 G/DL (2.5-4.1); POTASSIUM, SERUM 3.7 MMOL/L (3.5-5.3); SGOT(AST) 22 U/L (5-40); SGPT(ALT) 24 U/L (5-65); SODIUM, SERUM 145 MMOL/L (135-148); TOTAL PROTEIN 6.6 G/DL (6.0-8.5)
[2016-05-30 06:46] LABS: BUN (BLOOD UREA NITROGEN) 9 MG/DL (6-23); GLUCOSE, SERUM 80 MG/DL (60-99); TOTAL BILIRUBIN 0.3 MG/DL (0-1.2)
[2016-05-30 10:10] LABS: BASOPHILS 0.2 %; BASOPHILS ABSOLUTE 0.01 10/3/uL (0.0-0.16); EOSINOPHILS 0.5 %; EOSINOPHILS ABSOLUTE 0.03 10/3/uL (0.0-0.53); IMMATURE GRANULOCYTES 0.2 %; IMMATURE GRANULOCYTES ABSOLUTE 0.01 10/3/uL (0.0-0.11); LYMPHOCYTES 24.8 %; MEAN CORPUS HGB CONC 32.2 g/dL (32.0-36.0); MEAN CORPUSCULAR VOLUME 87.1 fL (80-100); MEAN PLATELET VOLUME 9.5 fL (9.2-13.0); MONOCYTES 5.5 %; MONOCYTES ABSOLUTE 0.33 10/3/uL (0.21-1.20); NEUTROPHILS 68.8 %; NEUTROPHILS ABSOLUTE 4.16 10/3/uL (2.02-8.40); RBC DISTRIBUTION WIDTH 15.9 % (12.0-16.0)
[2016-05-30 10:14] LABS: HEMATOCRIT 31.7 % (36.0-48.0); HEMOGLOBIN 10.2 g/dL (12.0-16.0); PLATELET COUNT 471 10/3/uL (150-400); RED CELL COUNT 3.64 10/6/uL (4.0-5.6)
[2016-05-30 10:16] LABS: MANUAL DIFF NO %
[2016-05-30] MEDS ORDERED: BACDS PO (11:55)
== END 2016-05-30 12:39 | disposition home or self-care (01) | DRG 439 ==
LOC: ER 20:57 → 2SO 23:47
PROVIDERS: Hospitalist; Nurse Practitioner Acute Care
DX: K85.90 Acute pancreatitis without necrosis or infection, unspecified (principal); K86.3 Pseudocyst of pancreas; K76.0 Fatty (change of) liver, not elsewhere classified; E27.49 Other adrenocortical insufficiency; E27.2 Addisonian crisis; E11.9 Type 2 diabetes mellitus without complications; D64.9 Anemia, unspecified; K92.1 Melena; E78.00 Pure hypercholesterolemia, unspecified; E03.9 Hypothyroidism, unspecified; E78.5 Hyperlipidemia, unspecified; E87.6 Hypokalemia; K21.9 Gastro-esophageal reflux disease without esophagitis; E86.0 Dehydration; Z80.9 Family history of malignant neoplasm, unspecified; Z79.4 Long term (current) use of insulin; Z98.890 Other specified postprocedural states
CPT/HCPCS: 71010; 74176; 80053; 80061; 81001; 82150; 82330; 82962; 83605; 83690; 83735; 84132; 84134; 84145; 84443; 85025; 85610; 85730; 87077; 87086; 87186; 96374; 96375; 99285; A9270-GY; C9113; J1720; J2405